=== PATIENT | male | born 1980 | race Caucasian/White ===

== ENCOUNTER 2018-07-13 10:01 | Day surgery (SDC) | payer BC ==
--- NOTE | 2018-07-05 11:07 | HP ---
HISTORY AND PHYSICAL: DATE OF ADMISSION/SURGERY: 07/13/18 He is scheduled for surgery at [facility] on 07/13/18. DATE OF HISTORY AND PHYSICAL EXAM: 07/05/18 ATTENDING PHYSICIAN: Dr. Polanco.* (DICTATED BY PAT SAXENA NP) CHIEF COMPLAINT: Increased swelling and pain bilateral legs. HISTORY OF PRESENT ILLNESS: Shailesh Ramires is a 38-year-old male who underwent closure of the left greater saphenous vein in 2014 with good results. The patient has had lymphedema at that time, but did well after surgery. Over time , he has developed swelling and pain in his bilateral legs. An ultrasound was done, which showed the left greater saphenous vein is patent and compressible. There is reflux of the greater saphenous vein from the saphenofemoral junction to the distal calf. At the saphenofemoral junction, reflux time of 2.5 seconds at a diameter of 1.6 cm. Proximal greater saphenous vein reflux time 3.5 seconds at a diameter of 1.2 cm. In the mid greater saphenous vein and above the knee, the reflux time is 1.3 seconds at a diameter of 0.5 at the knee. The right leg also shows reflux in the greater saphenous vein. This will be addressed at a later date. Dr. Polanco has discussed the nature and course of endoluminal closure in venous reflux disease and has discussed the material risks and relevant alternatives to surgery. These were reviewed with the patient at his preoperative appointment including infection, bleeding, poor healing, recurrent DVT. The patient has been given a chance to ask questions and these have been answered and the patient will sign on admission an informed consent for left leg endoluminal closure of the great saphenous vein and intraoperative sclerotherapy. PAST MEDICAL HISTORY: Significant in the fact that he is morbidly obese, high blood pressure, anxiety, depression and his lymphedema. Dr. Mcintyre is his family doctor. MEDICATIONS: 1. Doxazosin mesylate 4 mg p.o. daily. 2. Furosemide 40 mg. 3. Hydrocodone. 4. Lexapro 10 mg daily. 5. Loxapine succinate 5 mg p.o. daily. 6. Potassium chloride 20 mEq daily. 7. Valsartan/hydrochlorothiazide 320/25 mg p.o. daily. ALLERGIES: None. FAMILY HISTORY: Father heart disease, high blood pressure, diabetes, vein issues. 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 He denied tobacco use and alcohol use. REVIEW OF SYSTEMS: He denied problems with anesthesia. He does not take a daily aspirin. He does take the hydrocodone. There is a recent prescription from his family practitioner for knee pain. PHYSICAL EXAMINATION GENERAL: Shailesh Ramires is a 38-year-old male, obese, in no acute distress. VITAL SIGNS: Height 72 inches, weight 549 pounds. Blood pressure 150/82. BMI of 74.4. Pulse 87. HEENT: Within normal limits. Teeth are in good repair. Pharynx clear. HEART: S1, S2. Regular rate and rhythm. No extra heart sounds were auscultated. ABDOMEN: Soft, nontender. Positive bowel sounds. Positive tympany. No masses palpable. EXTREMITIES: +2 symmetrical radial pulses. NEURO: Alert and oriented x3. The rest of the exam was grossly intact. Local exam shows 1-2+ edema of the bilateral lower extremities with venous stasis changes. IMPRESSION: Venous reflux disease of the left great saphenous vein with re- cannulation of the left greater saphenous vein. PLAN: Same-day surgery admission to Dr. Polanco's service for left leg endoluminal closure of the great saphenous vein and intraoperative sclerotherapy. PAT SAXENA NP [id number]/[facility] #: [id number] [facility]PITALAntonio
--- NOTE | 2018-07-05 11:44 | HP ---
HISTORY AND PHYSICAL: DATE OF ADMISSION/SURGERY: 07/13/18 He is scheduled for surgery at [facility] on 07/13/18. DATE OF HISTORY AND PHYSICAL: 07/05/18 DICTATION ENDS ABRUPTLY. PAT SAXENA NP [id number]/[facility] #: [id number] [facility]ENTERAntonio
[~2018-07-13 10:01] MED LIST: Acetaminophen TAB* 325 MG PO ONE; Buffered Lidocaine 0.9% SYRIN* 5 ML/SYR SYRINGE INTRADERM ONE; EPINEPHRINE 1 MG/ML 1 ML VIAL ONE; Enoxaparin(*) 40 MG/0.4 ML SYR SUBCUT ONE; Lidocaine 2% PF * 5 ML VIAL ONE; Lidocaine 2% PF* 10 ML AMP ONE; Polidocanol 1% 20 MG/2 ML AMP IV ONE; Sodium Bicarbonate 8.4% SYR* 10 ML SYRINGE ONE
[2018-07-13] MEDS ORDERED: Acetaminophen TAB* 325 MG ONE (10:22)
[2018-07-13] MEDS ORDERED: ceFAZolin 1 GM ADVAN(*) 1 GM ADDV.VIAL IVPB ONE (10:22)
[2018-07-13] MEDS ORDERED: ceFAZolin 2 GM PREMIX in ORs 2 GM/50 ML BAG IVPB ONE (10:22)
[2018-07-13] MEDS ORDERED: Levalbuterol 0.63MG/3ML NEB* UNIT OF USE INH PRN (10:53)
[2018-07-13] MEDS ORDERED: PROCHLORPERAZINE INJ 5 MG/ML 2 ML VIAL IV PRN (10:53)
[2018-07-13] MEDS ORDERED: diPHENhydraMINE IV* 50 MG/ML 1 ml VIAL (BENADRYL) IV PRN (10:53)
[2018-07-13] MEDS ORDERED: DiMENhydriNATE IV* 50 MG/ML VIAL IV PUSH PRN (10:53)
[2018-07-13] MEDS ORDERED: HYDROcodone/ACETAMIN 5-325 MG* 1 TAB PO PRN (10:53)
[2018-07-13] MEDS ORDERED: Naloxone* 0.4 MG/ML 1 ML VIAL IV PRN (10:53)
[2018-07-13] MEDS ORDERED: Acetaminophen TAB* 325 MG PO PRN (10:53)
[2018-07-13] MEDS ORDERED: Lidocaine 1% MPF* 2 ML VIAL ONE (11:47)
[2018-07-13] MEDS ORDERED: Midazolam* 1 MG/ML 2 ML VIAL (2 MG) ONE ×2 (12:07→13:18)
[2018-07-13] MEDS ORDERED: Propofol* 10 MG/ML 20 ML BTL IV PUSH ONE ×2 (12:32→14:21)
[2018-07-13] MEDS ORDERED: Lidocaine 2% PF * 5 ML VIAL ONE (12:32)
[2018-07-13] MEDS ORDERED: Famotidine IV* 10 MG/ML 2 ML (20 mg) ONE (12:32)
[2018-07-13] MEDS ORDERED: fentaNYL* 50 MCG/ML 2 ML VIAL (100 MCG VIAL) ONE ×2 (12:38→13:39)
[2018-07-13] MEDS ORDERED: KETAMINE HCL* 50 MG/ML 10 ML VIAL ONE (14:02)
[2018-07-13 14:52] VITALS: BP 116/63
[2018-07-13] MEDS ORDERED: Ibuprofen TAB* 600 MG ONE (15:09)
--- NOTE | 2018-07-14 07:08 | OP ---
DATE OF OPERATION: 07/13/18 - LOCATED WITHIN [facility] DATE OF : 80 SURGEON: Kev Polanco MD MULTIMEDIA DESIGNER: Sirisha Daniel NP ANESTHESIA: Local plus MAC. PRE-OP DIAGNOSIS: Left lower extremity venous insufficiency secondary to an incompetent left greater saphenous vein. POST-OP DIAGNOSES: 1. Left lower extremity venous insufficiency secondary to an incompetent left greater saphenous vein. 2. Incompetent anterior accessory branch and medial accessory branch of the left greater saphenous vein. OPERATIVE PROCEDURE: 1. Endovenous laser ablation of the left greater saphenous vein. 2. EVLT anterior accessory branch, greater saphenous vein. 3. Anterior endovenous laser ablation of the medial accessory branch. 4. Intraoperative injection sclerotherapy. ESTIMATED BLOOD LOSS: Approximately 30 cc. DESCRIPTION OF PROCEDURE: The patient was taken to the procedure room. He underwent ultrasound mapping of the left greater saphenous vein. He also had an anterolateral accessory branch that was as well refluxing and a medial accessory branch that was refluxing. The greater saphenous vein was interrupted at about the knee level secondary to kinks in the vein in a corkscrew shape. After the mapping was done, the patient was placed in supine position. He had received preoperative antibiotics and subcutaneous Heparin. He was then prepped and draped in the usual sterile fashion and under sedation, lidocaine 1% was to used to infiltrate on the medial aspect of the left leg above the knee. Percutaneous cannulation of the greater saphenous vein was done under ultrasound guidance. The needle was then exchanged for a 4-Danish catheter. Subsequently, 0.035 guidewire was advanced via the 4-Danish catheter and this was advanced up to the groin. At the level of the groin, there was a saphenofemoral junction connecting to neovascularization. The catheter was placed in the upper third of the thigh and left in place to be used later. Access of the anterior accessory branch was done with a micropuncture kit, once the small needle and wire were in place, the needle was exchanged for 4-Danish catheter. The same thing was done with the medial accessory branch and the catheters were left in place to be used later. We then proceeded to introduce and exchanged the 4-Danish catheter of the greater saphenous vein with a 5- Danish introducer sheath, that was advanced over the wire up to the upper third of the greater saphenous vein but far away from the saphenofemoral junction. After this was done, we then proceeded to introduce a laser fiber inside the 5- Danish catheter and we then proceeded to infiltrate tumescent local anesthesia around the vein and the catheter. This was done with difficulty. The patient has significant amount of edema and the vein was quite deep because of the patient's morbid obesity and body habitus. After the anesthesia was then given , we then proceeded to activate a diode laser making sure the tip was away from the saphenofemoral junction, which was approximately 5 to 6 cm from the saphenofemoral junction. The laser was then activated and a total of 700 joules were delivered to the greater saphenous vein. The lower segment of the greater saphenous vein that was interrupted was also accessed with a 4-Danish catheter. On this one, the connecting through tortuous veins between the lower segment of the greater saphenous vein and the main greater saphenous vein were closed using Asclera 1% solution in CO2 foam, a total of 1 cc was used, in order to target this connecting segment. The remaining lower segment of the greater saphenous vein was then lasered by introducing a 600 micron laser fiber into the 4-Danish catheter and injecting tumescent local anesthesia for the lower segment, between the knee and approximately 8 cm below the saphenofemoral junction. A total of 400 joules were delivered to this segment and after this was completed, the 600 micron laser fiber was then introduced in the anterior accessory branch, positioning the tip of the laser fiber at 3 cm from the saphenofemoral junction, and after infiltrating tumescent local anesthesia activating the diode laser, a total of 532 joules were delivered to the anterior accessory branch. The same thing was done to the medial accessory branch by introducing a laser fiber into the segment and positioning the tip of the catheter 3 cm below the saphenofemoral junction and after the tumescent anesthesia was given under ultrasound, we proceeded to activate the diode laser delivering a total of 1372 joules to the medial accessory branch. After this was completed, there was evidence of closure of the treated veins; however, the common femoral vein appeared to be compressible as well as the superficial femoral vein appeared to be compressible without any abnormalities. After this was done, the small incisions were closed with 5-0 Prolene and Steri-Strips. A pressure dressing was applied to the left lower extremity. The patient was then taken in good condition to recovery room. [id number]/[facility] #: [id number] GLORIA
== END 2018-07-13 15:56 | disposition home or self-care (01) ==
LOC: OR 10:01
PROVIDERS: ATTEND Surgery
DX: I83.12 Varicose veins of left lower extremity with inflammation (principal); I87.2 Venous insufficiency (chronic) (peripheral); I83.812 Varicose veins of left lower extremity with pain; I89.0 Lymphedema, not elsewhere classified; I95.0 Idiopathic hypotension; E66.01 Morbid (severe) obesity due to excess calories; Z68.45 Body mass index [BMI] 70 or greater, adult; F41.8 Other specified anxiety disorders; E78.5 Hyperlipidemia, unspecified; G47.33 Obstructive sleep apnea (adult) (pediatric); I10 Essential (primary) hypertension; G89.29 Other chronic pain; Z79.891 Long term (current) use of opiate analgesic
CPT/HCPCS: A9270-GY; J0690; J1650; J2001; J2250; J2704; J3010

== ENCOUNTER 2019-05-14 16:42 | Inpatient (IN) | payer BC ==
--- OUTSIDE RECORDS SUMMARY | 2019-05-14 17:14 | XMS REPORT | Continuity of Care Document ---
:1980 External Reference #:[id number] Author Name MARINO Lucas (transmitted by agent of provider Xi Grant) Address [address] [place] [address] [place] [address] Care Team Providers Name Role Phone Dinesh Mcintyre M.D. 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 Kev Polanco Onset: 06/25/2015 Body mass index 40+ - severely obese Kev Polanco Onset: 11/27/2018 Vascular disease of the skin RENATE Alonso Onset: 07/05/2018 Varicose veins of lower extremity with RENATE Alonso Onset: 07/05/2018 inflammation Encounter for other preprocedural examination RENATE Alonso Onset: 2017 Edema Kev Polanco Onset: 06/11/2018 Lymphedema Kev Polanco Onset: 06/11/2018 Social History Type Date Description Comments Sex Unknown ETOH Use Denies alcohol use ETOH Use Occasionally consumed alcohol in the past ETOH Use Stopped all use in April of 2015 Tobacco Use Start: Unknown Patient has never smoked Smoking Status Reviewed: 11/27/18 Patient has never smoked Allergies, Adverse Reactions, Alerts Active Allergies Reaction Severity Comments Date NKDA 06/25/2015 Hay Fever 06/25/2015 Medications Active Medications SIG Qnty Indications Ordering Provider Date Circaid Juxta Lite wear daily as I89.0 Kev Polanco 05/09/2019 Right Leg. Custom directed Juxtafit Left Leg R60.1 Valsartan-Hydrochlorothiazide po qd Unknown 320-25mg Tablets Lexapro 10mg every day Unknown Tablets Loxapine Succinate po qd Unknown 5mg Capsules Doxazosin Mesylate po qd Unknown 4mg Tablets Furosemide 40mg po tid Francisco Javier, mad Tablets M.D. Potassium Chloride Kristine ER 2 tabs in the Francisco Javier, Ahmad 20Meq Tablets ER am and 1 at M.D. night Hydrocodone Bitartrate/Acetaminophen 1-2 tabs by Unknown 5-300mg Tablets mouth every 6 hours as needed pain Tylenol 325mg 2 tabs po tid Unknown Capsules Diclofenac Sodium Cassi Pat 1% Gel M.D. Zyrtec Allergy 10mg 1 by mouth Unknown Tablets every day Immunizations CPT Code Status Date Vaccine Lot # [id number] Refused 06/19/2018 Influenza Vaccine [id number] Refused 08/06/2015 Influenza Vaccine 45075-760-65 [id number] Refused 06/25/2015 Influenza Vaccine [id number] Vital Signs Date Vital Result Comment 05/09/2019 2:17pm Height 72 inches 6'0" BP Systolic 139 mmHg BP Diastolic 74 mmHg Heart Rate 92 /min Respiratory Rate 19 /min 04/18/2019 2:11pm Height 72 inches 6'0" BP Systolic 159 mmHg BP Diastolic 88 mmHg Heart Rate 86 /min Respiratory Rate 18 /min Pain Level 5 out of 10 Results Test Date Facility Test Result H/L Range Note Xray 04/26/2019 [facility] Ultrasound Extremity < pending> [address]/[place] [address] [phone] Procedures Description No Information Available Medical Devices Description No Information Available Encounters Type Date Location Provider Dx Diagnosis Office Visit 04/30/2019 1:00p [facility] RENATE Alosno R60.0 Localized edema I89.0 Lymphedema, not elsewhere classified R60.1 Generalized edema E66.2 Morbid (severe) obesity with alveolar hypoventilation Office Visit 04/18/2019 2:00p [facility] Kev Polanco R60.0 Localized edema I89.0 Lymphedema, not elsewhere classified R60.1 Generalized edema E66.2 Morbid (severe) obesity with alveolar hypoventilation Office Visit 11/27/2018 11:30a [facility] Polanco, Kev R60.0 Localized edema I89.0 Lymphedema, not elsewhere classified I83.11 Varicose veins of right lower extremity with inflammation Z68.45 Body mass index (BMI) 70 or greater, adult Assessments Date Code Description Provider 04/30/2019 R60.0 Localized edema Sirisha Fredy, HOUSING OFFICER 04/30/2019 I89.0 Lymphedema, not elsewhere classified Sirisha Fredy, HOUSING OFFICER 04/30/2019 R60.1 Generalized edema Sirisha Fredy, HOUSING OFFICER 04/30/2019 E66.2 Morbid (severe) obesity with alveolar Sirisha Fredy, HOUSING OFFICER hypoventilation 04/18/2019 R60.0 Localized edema Polanco, Kev 04/18/2019 I89.0 Lymphedema, not elsewhere classified Polanco, Kev 04/18/2019 R60.1 Generalized edema Polanco, Kev 04/18/2019 E66.2 Morbid (severe) obesity with alveolar Polanco, Kev hypoventilation 11/27/2018 R60.0 Localized edema Polanco, Kev 11/27/2018 I89.0 Lymphedema, not elsewhere classified Polanco, Kev 11/27/2018 I83.11 Varicose veins of right lower extremity with Polanco, Kev inflammation 11/27/2018 Z68.45 Body mass index (BMI) 70 or greater, adult Polanco, Kev Plan of Treatment No Information Available Functional Status Description No Information Available Mental Status Description No Information Available Referrals Refer to Dr Reason for Referral Status Appt Shailesh Kamara M.D. Sent 04/29/[address] [address] [phone]
--- OUTSIDE RECORDS SUMMARY | 2019-05-14 17:14 | XMS REPORT | Continuity of Care Document ---
:1980 External Reference #:[id number] Author Name Mina Phoenix M.D., [facility], [facility] (transmitted by agent of provider Shellie Christian) Address [address] 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 Active Problems Provider Date Dyspnea Mina Phoenix M.D., [facility], [facility] Onset: 05/03/2019 Social History Type Date Description Comments Sex Unknown ETOH Use Rarely consumes alcohol Tobacco Use Start: Unknown Patient has never smoked Recreational Drug Use Denies Drug Use Smoking Status Reviewed: 05/03/19 Patient has never smoked Exercise Type/Frequency Does not exercise Allergies, Adverse Reactions, Alerts Description No Known Drug Allergies Medications Active Medications SIG Qnty Indications Ordering Provider Date Furosemide 1 and 1/2 tabs by Unknown 40mg Tablets twice daily Potassium Chloride ER 2 tabs by mouth Unknown in the morning 20Meq Tablets ER and 1 tab by mouth in the evening Alprazolam 1 tab by mouth Unknown 0.5mg Tablets three times a day as needed Doxazosin Mesylate 1 and 1/2 tab by Unknown 4mg mouth every day Tablets Escitalopram Oxalate 1 by mouth every Unknown 10mg day Tablets Loxapine Succinate 1 cap by mouth at Unknown 5mg bedtime Capsules Valsartan-Hydrochlorot 1 tab by mouth Unknown hiazide every day 320-25mg Tablets Ibuprofen 3 tabs by mouth Unknown 200mg Tablets twice daily CBD Oil 0.5 ml SL twice Unknown daily Zyrtec Allergy 1 by mouth every Unknown 10mg day Tablets Immunizations Description No Information Available Vital Signs Date Vital Result Comment 05/03/2019 9:52am Height 71.25 inches 5'11.25" Weight 610.00 lb Heart Rate 88 /min iregular BP Systolic 130 mmHg Ra Large Cuff BP Diastolic 54 mmHg Ra Large Cuff BP Systolic Sitting 148 mmHg LA Large Cuff BP Diastolic Sitting 84 mmHg LA Large Cuff BP Systolic Standing 150 mmHg LA Large Cuff BP Diastolic Standing 92 mmHg LA Large Cuff Respiratory Rate 20 /min Pain Level 7 O2 % BldC Oximetry 80 % BMI (Body Mass Index) 84.5 kg/m2 Results Description No Information Available Procedures Date Code Description Status 05/03/2019 68321 EKG Tracing & Interpretation Completed Medical Devices Description No Information Available Encounters Description No Information Available Assessments Date Code Description Provider 05/03/2019 R06.02 Shortness of breath Mina Phoenix M.D., HERLINDA AVILA Plan of Treatment Future Appointment(s):06/14/2019 11:00 am - Mina Phoenix M.D., HERLINDA AVILA at [facility]06/04/2019 11:00 am - Mina Phoenix M.D., HERLINDA AVILA at [facility]05/21/2019 9:00 am - Mina Phoenix M.D., HERLINDA AVILA at [facility]05/03/2019 - Mina Phoenix M.D., MARGARITA, CGFESW64.02 Shortness of breathNew Orders:Echocardiogram, Scheduled: 06/04/19Stress Test, Pharmacologic Stress Echocardiogram Dobutamine, Scheduled: 05/21/19Comments:As discussed, we will further evaluate your heart. Please have your sleep apnea reevaluated, avoid salt and avoid Ibuprofen (can use Tylenol as needed for pain). Go to ER if start to feel short of breath at rest.Follow up:after that testing Functional Status Description No Information Available Mental Status Description No Information Available Referrals Description No Information Available
--- OUTSIDE RECORDS SUMMARY | 2019-05-14 17:14 | XMS REPORT | Continuity of Care Document ---
:1980 External Reference #:[id number] Author Name Mina Phoenix M.D., [facility], [facility] (transmitted by agent of provider Airam Aparicio) Address 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 Provider Date Dyspnea Mina Phoenix M.D., [facility], [facility] Onset: 05/03/2019 Social History Type Date [...] Available Procedures Date Code Description Status 05/03/2019 55671 EKG Tracing & Interpretation Completed Medical Devices Description No Information Available Encounters Type Date Location Provider Dx Diagnosis Office Visit 05/03/2019 [facility] Mina Burrows R06.02 Shortness of 10:00a Of Poultry [employer] AT Vickey Phoenix M.D., breath [facility], [facility] Assessments Date Code Description Provider 05/03/2019 R06.02 Shortness of breath Mina Phoenix M.D., [facility], [facility] Plan of Treatment 05/03/2019 - Mina Phoenix M.D., [facility], HUVRFE53.02 Shortness of breathNew Orders:Echocardiogram, Ordered: 05/03/19Stress Test, Pharmacologic Stress Echocardiogram Dobutamine, Ordered: 05/03/19Comments:As discussed, we will further evaluate your heart. Please have your sleep apnea reevaluated, avoid salt and avoid Ibuprofen (can use Tylenol as needed for pain).Follow up:after that testing Functional Status Description No Information Available Mental Status Description No Information Available Referrals Description No Information Available
--- OUTSIDE RECORDS SUMMARY | 2019-05-14 17:14 | XMS REPORT | Continuity of Care Document ---
:1980 External Reference #:[id number] Author Name RENATE Alonso Address [address] [place] [address] Care Team Providers Name Role Phone Dinesh Mcintyre M.D. 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 Potassium Chloride Kristine ER 2 [...] CPT Code Status Date Vaccine Lot # [id number] Refused 06/19/2018 Influenza Vaccine [id number] [id number] Refused 08/06/2015 Influenza Vaccine [id number] Refused 06/25/2015 Influenza Vaccine [id number] Vital Signs Date Vital Result Comment 05/09/2019 [...] Test Result H/L Range Note Xray 04/26/2019 [facility] Ultrasound Extremity < pending> [address]Doppler [place], [place] [id number] [phone] Procedures Description No Information Available Medical Devices Description No Information Available Encounters Type Date Location Provider Dx Diagnosis Office Visit 05/09/2019 [facility] MARINO Lucas R60.1 Generalized edema 2:00p R60.0 Localized edema Office Visit 04/30/2019 1:00p [facility] RENATE Alonso R60.0 Localized edema I89.0 Lymphedema, not elsewhere [...] greater, adult Assessments Date Code Description Provider 05/09/2019 R60.1 Generalized edema Clarice Haley, PA 05/09/2019 R60.0 Localized edema Clarice Haley, PA 04/30/2019 R60.0 Localized edema Sirisha Fredy, HONEY LIQUEFIER 04/30/2019 I89.0 Lymphedema, not elsewhere classified Siirsha Fredy, HONEY LIQUEFIER 04/30/2019 R60.1 Generalized edema Sirisha Fredy, HONEY LIQUEFIER 04/30/2019 E66.2 Morbid (severe) obesity with alveolar Sirisha Fredy, HONEY LIQUEFIER hypoventilation 04/18/2019 R60.0 Localized edema Polanco, Kev [...] Description No Information Available Referrals Refer to Reason for Referral Status Appt Date Shailesh Kamara M.D. Sent 04/29/[address] [address] [phone]
--- NOTE | 2019-05-14 17:41 | ED ---
Complex/Multi-Sys Presentation - HPI Summary HPI Summary: This patient is a 39 year old M [facility] mother with a chief complaint of fluid buildup since a 05/10/19. Pt has been having trouble walking (SOB, pain), sores on back of legs, trouble urinating, walking up and down stairs. In the past week pt has gain weight since last week. Pt has PMHx of HTN. Pt takes losartan 60 mg twice a day. Pt had vein stripping done on left leg for lymphedema Jul, 2018. Patient denies fever, chills, vomiting, and diarrhea. Pt has sleep apnea. 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 Per triage, Patient comes in today after several days of increased fluid building up in his body. Patient takes medications for fluid overload. Patient found to be 73% on RA, comfortable, pink warm dry skin, patient in no distress. Patent placed on 4L. Medications reviewed. Allergies noted - History Of Current Complaint Chief Complaint: EDGeneral Time Seen by Provider: 05/14/19 17:13 Hx Obtained From: Patient Onset/Duration: Lasting Days, Still Present Timing: Constant, Days Severity Currently: None Aggravating Factor(s): Nothing Alleviating Factor(s): Nothing Associated Signs And Symptoms: Positive: SOB, Other - fluid build up;trouble walking, sores on back of legs, trouble urinating, trouble walking up and down stairs. Negative: Nausea, Vomiting, Diarrhea, Fever - Allergies/Home Medications Allergies/Adverse Reactions: Allergies Allergy/AdvReac Type Severity Reaction Status Date / Time No Known Allergies Allergy Verified 05/07/19 07:31 Home Medications: Home Medications ALPRAZolam TAB* [Xanax TAB*] 0.5 mg PO TID PRN 05/14/19 [History Confirmed 05/14] Acetaminophen [Acetaminophen Extra Strength] 1,000 mg PO BID 05/14/19 [History Confirmed 05/14/19] Diclofenac 1% GEL (NF) [Voltaren 1% GEL (NF)] 1 applic TOPICAL TID MDD 3 [History Confirmed 05/14/19] Doxazosin TAB* [Cardura TAB*] 6 mg PO BEDTIME 05/14/19 [History Confirmed ] Escitalopram * [Lexapro 10 mg (NF)] 10 mg PO DAILY 05/14/19 [History Confirmed 05/14/19] Furosemide TAB* [Lasix TAB*] 60 mg PO BID 05/14/19 [History Confirmed 05/14/19] Loxapine (NF) 5 mg PO BEDTIME 05/14/19 [History Confirmed 05/14/19] OLANzapine TAB* [Zyprexa 10 MG TAB*] 10 mg PO DAILY 05/14/19 [History Confirmed 05/14/19] Potassium Chlor TAB* [Klor Con ER TAB*] 20 meq PO BEDTIME 05/14/19 [History Confirmed 05/14/19] Potassium Chlor TAB* [Klor Con ER TAB*] 40 meq PO QAM 05/14/19 [History Confirmed 05/14/19] Valsartan/HCTZ 320/25(NF) [Diovan Hct 320/25(NF)] 1 tab PO DAILY 05/14/19 [ History Confirmed 05/14/19] PMH/Surg Hx/FS Hx/Imm Hx Endocrine/Hematology History: Denies: Hx Diabetes, Hx Sickle Cell Disease, Hx Thyroid Disease Cardiovascular History: Reports: Hx Hypertension, Hx Peripheral Vascular Disease - Venous Reflux bilateral legs-varicose veins-lymphedema Denies: Hx Congestive Heart Failure, Hx Deep Vein Thrombosis, Hx Myocardial Infarction, Hx Pacemaker/ICD, Other Cardiovascular Problems/Disorders Respiratory History: Reports: Hx Asthma - History of asthma when he was in middle school., Hx Sleep Apnea Denies: Hx Chronic Obstructive Pulmonary Disease (COPD), Hx Lung Cancer, Hx Pneumonia, Hx Pulmonary Embolism, Other Respiratory Problems/Disorders GI History: Denies: Hx Gall Bladder Disease, Hx Gastrointestinal Bleed, Hx Ulcer, Hx Urosepsis, Other GI Disorders History: Denies: Hx Kidney Stones, Hx Renal Disease, Other Problems/Disorders Musculoskeletal History: Reports: Other Musculoskeletal History - Knee and foot pain, thinks it is from swelling Sensory History: Denies: Hx Contacts or Glasses, Hx Hearing Aid Opthamlomology History: Denies: Hx Contacts or Glasses Neurological History: Denies: Hx Dementia, Hx Migraine, Hx Seizures, Hx Transient Ischemic Attacks (TIA), Other Neuro Impairments/Disorders Psychiatric History: Reports: Hx Anxiety Denies: Hx Depression, Hx Schizophrenia, Hx Bipolar Disorder - Surgical History Surgery Procedure, Year, and Place: Varicose vein removed on leg inner thigh august 2015 Hx Anesthesia Reactions: No Infectious Disease History: No Infectious Disease History: Reports: History Other Infectious Disease - Anal abscess 2.5 years ago. Denies: Hx Clostridium Difficile, Hx Hepatitis, Hx Human Immunodeficiency Virus (HIV), Hx of Known/Suspected MRSA, Hx Shingles, Hx Tuberculosis, Hx Known/ Suspected VRE, Hx Known/Suspected VRSA, Traveled Outside the [place] in Last 30 Days - Family History Known Family History: Positive: Hypertension, Diabetes - Social History Alcohol Use: None Substance Use Type: Reports: None Hx Tobacco Use: No Smoking Status (MU): Never Smoked Tobacco Review of Systems Positive: Other - trouble walking. Negative: Fever, Chills Positive: Shortness Of Breath Negative: Vomiting, Diarrhea Positive: other - trouble urinating Positive: Other - sores on back of legs All Other Systems Reviewed And Are Negative: Yes Physical Exam - Summary Physical Exam Summary: Constitutional: Morbidly obese, Alert. (-) Distressed Skin: Warm, Dry HENT: Normocephalic; Atraumatic Eyes: Conjunctiva normal Neck: Musculoskeletal ROM normal neck. (-) JVD, (-) Stridor, (-) Tracheal deviation Cardio: Rhythm regular, rate normal, Heart sounds normal; Intact distal pulses; The pedal pulses are 2+ and symmetric. Radial pulses are 2+ and symmetric. (-) Murmur Pulmonary/Chest wall: limited lung exam due to body habitus Abd: Soft, (-) tenderness, (-) Distension, (-) Guarding, (-) Rebound Musculoskeletal: Edematous large legs, large protruding abdomen, difficult to feel the fluid weight Lymph: (-) Cervical adenopathy Neuro: Alert, Oriented x3 Psych: Mood and affect Normal Triage Information Reviewed: Yes Vital Signs On Initial Exam: Initial Vitals Temp Pulse Resp BP Pulse Ox 98.7 F 95 16 153/123 73 05/14/19 16:56 05/14/19 16:56 05/14/19 16:56 05/14/19 16:56 05/14/19 16:56 Vital Signs Reviewed: Yes Diagnostics - Vital Signs Vital Signs Temp Pulse Resp BP Pulse Ox 05/14/19 16:56 98.7 F 95 16 153/123 73 - Laboratory Result Diagrams: 05/14/19 18:07 05/14/19 18:07 Lab Statement: Any lab studies that have been ordered have been reviewed, and results considered in the medical decision making process. - Radiology CXR Radiology Interpretation Completed By: ED Physician Summary of Radiographic Findings: CXR reveals, per ED physician, Cardiomegaly with bilateral pulmonary edema. Pending official radiology report. - EKG 1805 Cardiac Rate: NL - 91 bpm EKG Rhythm: Sinus Rhythm Summary of EKG Findings: An EKG at 1805 reveals normal sinus rhythm 91 bpm, T- wave inversion in III, no STEMI Re-Evaluation - Re-Evaluation First Eval Re-Evaluation Time: 18:47 Comment: Discussed results and plan of care with pt. Complex Multi-Symp Course/Dx Course Of Treatment: Patient is here with worsening anasarca over the past month. Patient's had a negative workup so far as an outpatient including a 24- hour urine sample. Patient was 73% on room air but improved to 95% on 4 L. Patient is morbidly obese with a limited exam secondary to this. Patient has a chest x-ray which shows possible cardiomegaly with pulmonary edema. Patient normal BNP which is not reliable given his body habitus. Patient has a bumped troponin with no EKG changes and some T-wave inversion in lead 3. Patient did not tolerate typical CPAP since started on nasal CPAP after failing nasal BiPAP. Patient is hypercapnic with a CO2 of 97 but has totally normal mentation. Patient's likely hypercapnic due to obesity hypoventilation syndrome. - Diagnoses Provider Diagnoses: Hypercapnemia, Hypoxemia, Elevated troponin, Hyperkalemia, Fluid overload, Morbid obesity - Physician Notifications Discussed Care Of Patient With: Jaclyn Diggs Time Discussed With Above Provider: 19:07 Instructed by Provider To: Other - Discussed case with Dr. Diggs, who accepts pt for admission - Critical Care Time Critical Care Time: 30-74 min - 30 mins Discharge ED - Sign-Out/Discharge Documenting (check all that apply): Patient Departure - Admit Patient Received Moderate/Deep Sedation with Procedure: No - Discharge Plan Condition: Stable Disposition: ADMITTED TO [facility] Referrals: Dinesh Mcintyre MD [Primary Care Provider] - - Billing Disposition and Condition Condition: STABLE Disposition: Admitted to [facility] - Attestation Statements Document Initiated by Scribe: Yes Documenting Scribe: Dorothy Arisa Provider For Whom Scribe is Documenting (Include Credential): Cristino Webber MD Scribe Attestation: Dorothy Whiting, scribed for Cristino Webber MD on 05/14/19 at 1924. Scribe Documentation Reviewed: Yes Provider Attestation: The documentation as recorded by the Dorothy le accurately reflects the service I personally performed and the decisions made by me, Cristino Webber MD Status of Scribe Document: Viewed
[2019-05-14 18:18] LABS: ABS Basophils 0.1 10^3/ul (0-0.2); ABS Eosinophils 0.2 10^3/ul (0-0.6); ABS Lymphocytes 1.1 10^3/ul (1.0-4.8); ABS Monocytes 1.1 10^3/ul (0-0.8); Eosinophil % 2.1 %; Hematocrit 47 % (42-52); Lymphocyte % 9.6 %; Mean Corpuscular HGB Conc 32 g/dL (31-36); Mean Corpuscular Hemoglobin 27 pg (27-31); Mean Corpuscular Volume 85 fL (80-94); Mean Platelet Volume 7.8 fL (7.4-10.4); Nucleated Red Blood Cells % 0.2; Platelet Count 191 10^3/uL (150-450); Red Blood Count 5.59 10^6 /uL (4.18-5.48); Red Cell Distribution Width 19 % (10-15); White Blood Count 11.5 10^3/uL (3.5-10.8)
[2019-05-14 18:44] LABS: Urine Appearance Clear; Urine Bilirubin Negative (Negative); Urine Blood Negative (Negative); Urine Color Yellow; Urine Glucose Negative (Negative); Urine Ketones Negative (Negative); Urine Nitrite Negative (Negative); Urine Protein Negative (Negative); Urine Specific Gravity 1.005 (1.010-1.030); Urine Urobilinogen Negative (Negative)
[2019-05-14 18:47] LABS: Albumin 3.7 g/dL (3.2-5.2); CO2 Carbon Dioxide 35 mmol/L (22-32); Calcium 8.9 mg/dL (8.6-10.3); Chloride 91 mmol/L (101-111); Sodium 131 mmol/L (135-145)
[2019-05-14 18:48] LABS: Anion Gap 5 mmol/L (2-11); Potassium 5.1 mmol/L (3.5-5.0)
[2019-05-14 18:53] LABS: ALT 15 U/L (7-52); AST 16 U/L (13-39); Albumin/Globulin Ratio 1.1 (1-3); Alkaline Phosphatase 57 U/L (34-104); BUN/Creatinine Ratio 19.8 (8-20); Blood Urea Nitrogen 16 mg/dL (6-24); EGFR African American 128.4 (>60); EGFR Non-African American 106.1 (>60); Globulin 3.4 g/dL (2-4); Glucose 102 mg/dL (70-100); Total Protein 7.1 g/dL (6.4-8.9); Troponin I 0.09 ng/mL (<0.04)
[2019-05-14] MEDS ORDERED: Furosemide IV* 10 MG/ML VIAL (40 MG) IV ONE ×2 (19:18→22:26)
[2019-05-14] MEDS ORDERED: Acetaminophen TAB* 325 MG PO ONE (19:56)
[2019-05-14] MEDS ORDERED: Albuterol 2.5 MG/3 ML NEB.SOL* (0.083%) INH PRN (19:57)
[2019-05-14] MEDS ORDERED: Acetaminophen TAB* 325 MG PO PRN (19:57)
[2019-05-14] MEDS ORDERED: Magnesium Hydroxide LIQ* 30 ML UDC PO PRN (19:57)
[2019-05-14] MEDS ORDERED: Al Hydrox/Mg Hydrox/Simet LIQ* 30 ML UDC PO PRN (19:57)
[2019-05-14 20:07] LABS: Magnesium 2.1 mg/dL (1.9-2.7)
[2019-05-14 20:13] LABS: Cholesterol 112 mg/dL; HDL Cholesterol 30.3 mg/dL; LDL Cholesterol 69 mg/dL; Triglycerides 65 mg/dL
[2019-05-14 21:07] LABS: Troponin I 0.11 ng/mL (<0.04)
[2019-05-14 21:23] LABS: BUN/Creatinine Ratio 19.7 (8-20); Blood Urea Nitrogen 15 mg/dL (6-24); CO2 Carbon Dioxide 40 mmol/L (22-32); Calcium 8.9 mg/dL (8.6-10.3); Chloride 89 mmol/L (101-111); EGFR African American 138.2 (>60); EGFR Non-African American 114.2 (>60); Glucose 117 mg/dL (70-100); Sodium 131 mmol/L (135-145)
[2019-05-14 21:25] LABS: Anion Gap 2 mmol/L (2-11); Potassium 5.4 mmol/L (3.5-5.0)
--- NOTE | 2019-05-14 22:02 | HP ---
CC: Dr. Dinesh Mcintyre * HISTORY AND PHYSICAL: DATE OF ADMISSION: 05/14/19 PRIMARY CARE PHYSICIAN: Dr. Dinesh Mcintyre. HEALTHCARE PROXY: His , Radhika, phone number [phone]. CODE STATUS: Full. CHIEF COMPLAINT: Subacute progressive hypoxia and edema. HISTORY OF PRESENT ILLNESS: Mr. Ramires is a 39-year-old man with a history of morbid obesity, lymphedema, anxiety, depression, hypertension, sleep apnea, and peripheral vascular disease, who is presenting with several weeks of progressive edema and hypoxia. He reports that he has significant edema at baseline for which he has been undergoing an outpatient workup. He reports that a 24-hour urine collection was normal; this was possibly for protein. He reports that he has bariatric surgery scheduled for August and was recently referred to Dr. Shailesh Kamara of Endocrinology and Dr. Phoenix of Cardiology for preoperative clearance and has an echo and stress test pending as an outpatient. He noticed over the last few weeks that his edema had been getting worse, notably it is over his legs and abdomen. He is not able to give me baseline weight, but says that his weight has been increasing. When mentioned to him that he is 605 pounds today, he states that that is higher than his baseline. However, of note, he saw Cardiology just under 2 weeks ago, and at that time, his weight was noted to be 610 pounds. The patient also reports that he measures his oxygen saturation at home and that he is supposed to be on a CPAP machine, but is unable to tolerate it and he noticed that he had been progressively more hypoxic over the last few days; however, he is unable to give a number. The patient also reports dyspnea on exertion, but denies chest pain, shortness of breath at rest, orthopnea, paroxysmal nocturnal dyspnea, nausea, vomiting, constipation, diarrhea, abdominal pain, changes in urination, dysuria, fevers, chills, or night sweats. Of note, this history is limited as the patient was very uncomfortable in normal-sized stretcher and preferred limited interview. In the emergency room, the patient was noted to have a respiratory acidosis and also a pCO2 of 93, so he was started on nasal BiPAP which he only tolerated briefly. He also had a chest x-ray that showed cardiomegaly and pleural effusions. He was asked to be admitted to Medicine for further management. PAST MEDICAL HISTORY: 1. Morbid obesity. 2. Hypertension. 3. Anxiety and depression. 4. Lymphedema, status post vein sclerotherapy in 2018. 5. Sleep apnea. 6. Allergic rhinitis. HOME MEDICATIONS: 1. Alprazolam 0.5 mg 3 times a day as needed for anxiety. 2. Escitalopram 10 mg daily. 3. Loxapine 5 mg nightly. 4. Valsartan/hydrochlorothiazide 320/25 one tab daily. 5. Potassium chloride 40 mEq in the morning, 20 mEq in the evening. 6. Doxazosin 6 mg at bedtime. 7. Furosemide 60 mg twice a day. 8. Diclofenac gel 1% topically as needed. ALLERGIES: No known drug allergies. FAMILY HISTORY: Father had heart disease, high blood pressure, vein issues, diabetes. Paternal grandfather had stroke, diabetes, hypertension. Mother had hypertension and anxiety. SOCIAL HISTORY: The patient lives with his and child. 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 He denies current history of tobacco use, alcohol or other drugs. PHYSICAL EXAMINATION GENERAL: He is a morbidly obese man, mildly anxious appearing, but alert and interactive. No increased work of breathing. VITAL SIGNS: Afebrile, heart rate 90, blood pressure 130/73, respiratory rate 25, oxygen saturation 90% on 4 L. NECK: Unable to appreciate JVP given habitus. HEENT: Moist mucous membranes. OP clear. LUNGS: Clear to auscultation anteriorly. HEART: Normal S1, S2. Regular rate and rhythm. No murmurs, gallops, or rubs. ABDOMEN: Protuberant, soft, nontender. Trace pitting edema. EXTREMITIES: Warm and well perfused. Diffuse erythema over distal lower extremities. The patient reports at baseline 2 to 3+ lymphedema to 5. NEURO: Pupils equal, round, and reactive to light. A and O x3. Moves all extremities spontaneously. DIAGNOSTIC STUDIES/LAB DATA: CBC notable for leukocytosis to 11.5. BMP with sodium 131, potassium 5.1, carbon dioxide 35, and normal BUN and creatinine. Troponin 0.09. BNP 67. TSH 9.2. Urinalysis unremarkable. EKG with normal sinus rhythm at 91, low voltage T-wave inversions in III and T- wave flattening in V2. No priors for comparison. Chest x-ray, AP with significant cardiomegaly and possible effusions bilaterally , but poor film quality. ASSESSMENT AND PLAN: Mr. Ramires is a 39-year-old man with morbid obesity, lymphedema, hypertension, depression, anxiety, who is presenting with subacute progressive edema and hypoxia. He was found with hypercarbic and hypoxemic respiratory failure. He will be admitted to the ICU for BiPAP and IV diuresis. 1. Respiratory failure. The patient is likely chronic retainer of CO2 given his elevated bicarb. He will be placed on BiPAP in the ICU given hypoxia on presentation with likely volume overload on chest x-ray and exam. He will be aggressively diuresed with IV furosemide with close electrolyte monitoring. He will have daily weights and I's and O's recorded. The patient may have component of heart failure, so a transthoracic echocardiogram has been ordered. 2. Edema. Again, this is possibly from heart failure. It appears the patient had other workup for edema including 24-hour urine collection possibly for protein as an outpatient. He does not have protein on his UA here. We will aggressively diurese with furosemide as above. The patient is also on hydrochlorothiazide. 3. Elevated troponin. This is likely in the setting of demand given possible heart failure exacerbation. The patient adamantly denies chest pain. We will try to obtain recent EKGs done in cardiology clinic, for baseline, and we will trend troponins. 4. Hypertension. The patient's home medications included valsartan/ hydrochlorothiazide 320/25 with doxazosin and potassium. It appears the patient 's potassium in clinic this year was 5.0, so it is highly likely that he does not need to take such a significant amount of potassium as an outpatient. If his hyponatremia does not improve, we will consider switching hydrochlorothiazide to a calcium channel yvonne, but for now we will continue his ARB, diuretics, and doxazosin, and monitor electrolytes closely. Will not continue potassium. 5. Depression and anxiety. Continue escitalopram 10 mg daily. Given tenuous respiratory status, we will hold the patient's home benzo, but can restart as his respiratory status improves. The patient was also on loxapine as an outpatient, but was unable to elicit exact indication for this medication during interview. 6. Obstructive sleep apnea and possible obesity-hypoventilation syndrome. The patient will be in ICU for BiPAP as above. 7. DVT prophylaxis. Initiate Lovenox subcu daily. 8. Code status. Full code. TIME SPENT: Approximately 60 minutes was spent on admission of this patient, more than half of which was spent at bedside for interview and exam. [id number]/CPS #: [id number] MTDD
[2019-05-14] MEDS ORDERED: LORazepam INJ* 2 MG/ML 1 ML VIAL IV PUSH ONE (23:12)
[2019-05-14] MEDS ORDERED: Lorazepam PYXIS KEY PRN (23:12)
[2019-05-14] MEDS: Doxazosin TAB* 2 MG PO SCH (23:24)
[2019-05-14] MEDS: LOXAPINE 5 MG PO SCH (23:25)
[2019-05-14] MEDS: Enoxaparin(*) 40 MG/0.4 ML SYR SUBCUT SCH (23:25)
[2019-05-15] MEDS ORDERED: Lorazepam PYXIS KEY PRN (01:16)
[2019-05-15] MEDS ORDERED: LORazepam INJ* 2 MG/ML 1 ML VIAL IV PUSH ONE (01:16)
[2019-05-15] MEDS ORDERED: Succinylcholine* 20 MG/ML 10 ML VIAL ONE ×2 (03:14→03:18)
[2019-05-15] MEDS ORDERED: Propofol* 100 ML ONE (03:18)
[2019-05-15] MEDS ORDERED: Etomidate* 2 MG/ML 20 ML VIAL (40 MG) ONE (03:18)
[2019-05-15] MEDS ORDERED: Propofol* 100 ML IV SCH (03:30)
--- NOTE | 2019-05-15 03:37 | PN ---
Hospitalist Progress Note Date of Service: 05/15/19 Paged given worsening pCO2 and altered mental status, not improved after switch from nasal BiPAP to full face mask. pCO2 now [address] Brown from EM up for intubation. Pt given etomidate and succinylcholine. Bilateral breath sounds auscultated after procedure. Pending CXR STAT. Will place OG tube and repeat ABG. Propofol ordered for sedation.
[2019-05-15] MEDS ORDERED: Norepinephrine 16MCG/ML IVPRE* 4,000 MCG/250 ML BAG IV ONE (03:54)
[2019-05-15] MEDS ORDERED: Norepinephrine 16MCG/ML IVPRE* 4,000 MCG/250 ML BAG IV SCH ×2 (04:00)
[2019-05-15] MEDS: Norepinephrine 16MCG/ML IVPRE* 4,000 MCG/250 ML BAG IV SCH ×2 (04:50→12:11)
[2019-05-15] MEDS: Propofol* 100 ML IV SCH ×10 (05:20→23:29)
[2019-05-15] MEDS ORDERED: Furosemide IV* 10 MG/ML 10 ML VIAL (100 MG) IV SCH (06:00)
--- NOTE | 2019-05-15 06:19 | CONSULT ---
Consult Consult: Dr. Brown was called to ICU floor to intubate patient due to hypercarbia despite bipap treatment. Orotracheal intubation with 7.5 tube was done. Succinylcholine and etomidate were used. No complications with intubation, breath sounds were equal after procedure. Post intubation CXR showed ET tube to be 7 cm above julia. Procedures - Intubation Time of Intubation: 03:10 Intubation Method: orotracheal Tube Size (cm): 7.5 Medications: Succinylcholine - and etomidate Breath Sounds after Intubation: equal Intubation Complications: no complications Post Intubation Xray: Yes Progress/Xray Impression: ET tube is 7 cm above the julia.
[2019-05-15 06:45] LABS: Free T3 2.7 pg/mL (2.5-3.9)
[2019-05-15 06:47] LABS: Free T4 1.18 ng/dL (0.61-1.12)
[2019-05-15 07:13] LABS: Calcium 8.1 mg/dL (8.6-10.3); Chloride 92 mmol/L (101-111); Sodium 127 mmol/L (135-145)
[2019-05-15 07:19] LABS: BUN/Creatinine Ratio 16.7 (8-20); Blood Urea Nitrogen 16 mg/dL (6-24); EGFR African American 105.5 (>60); EGFR Non-African American 87.2 (>60); Glucose 108 mg/dL (70-100)
[2019-05-15 07:57] LABS: CO2 Carbon Dioxide 31 mmol/L (22-32)
[2019-05-15 08:41] LABS: Anion Gap 4 mmol/L (2-11)
[2019-05-15] MEDS ORDERED: Furosemide IV* 10 MG/ML VIAL (40 MG) IV SCH (09:00)
[2019-05-15] MEDS ORDERED: Valsartan TAB* 160 MG PO SCH (09:00)
[2019-05-15] MEDS ORDERED: Hydrochlorothiazide TAB* 25 MG PO SCH (09:00)
[2019-05-15] MEDS: Escitalopram * 10 MG TAB PO SCH (09:03)
[2019-05-15] MEDS ORDERED: Perflutren Lipid Microsphere* 3 ML VIAL ONE (11:04)
--- NOTE | 2019-05-15 12:26 | CONSULT ---
Consult Consult: Consultation Note -- Critical Care Requesting Physician: Reason for consult: Limitations in history/physical: Date of consult:05/15/2019 HPI: 39y M w/pmhx of HTN, obesity, Sleep Apnea, asthma in childhood, Anxiety disorder, depression, Peripheral venous insuff, lymphedema; comes to ER 05/14 for complaints of SOB for a few days to weeks. Mother also came with him and states that he has been increasingly been gaining weight, more so past month. no fever/chills. no diarrhea. has been on water pill for fluid buildup also. He stated he could not tolerate home CPAP machine and has been having lower oxygen levels at home for weeks also. In ER he was hypoxic to 70s, started on NC. CXR demonstrated pulm congestion. He was admitted for volume overload, respiratory failure, with ABG demonstrating hypercapnea and A-a gradient. Patient overnight became more lethargic, increasing O2 requirements, eventually requiring intubation. He is currently intubated in ICU, awakens on sedation vacation. on levophed which decreases with lower sedation. afebrile. anxious off sedation. mother at bedside giving history. has made ~4L urine output since admission last night. Off sedation he follows all commands. He still remains on 100% fio2 with peep 10 on PCV mode. ABG just performed demonstrates po2 157 on above settings. minimal secretions noted from ETT, afebrile. he appears very anxious on low sedation. 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 Allergies: Allergies Allergy/AdvReac Type Severity Reaction Status Date / Time No Known Allergies Allergy Verified 05/07/19 07:31 Home Medications: ALPRAZolam TAB* [Xanax TAB*] 0.5 mg PO TID PRN 05/14/19 [History Confirmed 05/14] Acetaminophen [Acetaminophen Extra Strength] 1,000 mg PO BID 05/14/19 [History Confirmed 05/14/19] Diclofenac 1% GEL (NF) [Voltaren 1% GEL (NF)] 1 applic TOPICAL TID MDD 3 [History Confirmed 05/14/19] Doxazosin TAB* [Cardura TAB*] 6 mg PO BEDTIME 05/14/19 [History Confirmed ] Escitalopram * [Lexapro 10 mg (NF)] 10 mg PO DAILY 05/14/19 [History Confirmed 05/14/19] Furosemide TAB* [Lasix TAB*] 60 mg PO BID 05/14/19 [History Confirmed 05/14/19] Loxapine (NF) 5 mg PO BEDTIME 05/14/19 [History Confirmed 05/14/19] OLANzapine TAB* [Zyprexa 10 MG TAB*] 10 mg PO DAILY 05/14/19 [History Confirmed 05/14/19] Potassium Chlor TAB* [Klor Con ER TAB*] 20 meq PO BEDTIME 05/14/19 [History Confirmed 05/14/19] Potassium Chlor TAB* [Klor Con ER TAB*] 40 meq PO QAM 05/14/19 [History Confirmed 05/14/19] Valsartan/HCTZ 320/25(NF) [Diovan Hct 320/25(NF)] 1 tab PO DAILY 05/14/19 [ History Confirmed 05/14/19] Tele: NSR Vitals: Vital Signs Temp 99.7 F 05/15/19 12:00 Pulse 85 05/15/19 12:00 Resp 18 05/15/19 10:00 BP 118/71 05/15/19 12:00 Pulse Ox 96 05/15/19 12:00 Intake & Output 05/14/19 05/15/19 05/15/19 18:59 06:59 18:59 Intake Total 142 Output Total 3162 830 Balance -3020 -830 Weight 274.423 kg 294 kg Intake: Medicated IV 142 Propofol 142 Output: Roberts 3162 830 O2/Vent: PCV 30/10, Rate 18, 100% fio2 -> changed to PCV 30/7, 80%, rate 20 Infusions: propofol , levophed Current Medications: Acetaminophen (Tylenol Tab*) 975 mg PO Q8H PRN PRN Reason: Pain - Mild to Moderate Al Hydrox/Mg Hydrox/Simethicone (Maalox Plus*) 30 ml PO Q6H PRN PRN Reason: INDIGESTION Albuterol (Ventolin 2.5 Mg/3 Ml Neb.Izabella*) 2.5 mg INH [id number] AWAKE PRN PRN Reason: sob/wheezing Chlorhexidine Gluconate (Peridex Mouth Wash 0.12%*) 15 ml TOPICAL Q4HR JULIA Doxazosin Mesylate (Cardura Tab*) 6 mg PO BEDTIME JULIA Last Admin: 05/14/19 23:24 Dose: Not Given Enoxaparin Sodium (Lovenox(*)) 40 mg SUBCUT Q24H JULIA Last Admin: 05/14/19 23:25 Dose: 40 mg Escitalopram Oxalate (Lexapro *) 10 mg PO DAILY JULIA Last Admin: 05/15/19 09:03 Dose: 10 mg Furosemide (Lasix Iv*) 80 mg IV Q24H JULIA Last Admin: 05/15/19 05:35 Dose: 80 mg Propofol (Diprivan*) 100 mls @ 0 mls/hr IV .PER PROTOCOL JULIA; Protocol Last Admin: 05/15/19 10:41 Dose: 52.9 mls/hr Norepinephrine Bitartrate (Levophed 16 Mcg/Ml Premix*) 4,000 mcg in 250 mls @ 18.75 mls/hr IV .INITIAL RATE JULIA; Protocol Last Admin: 05/15/19 12:11 Dose: 18.75 mls/hr Magnesium Hydroxide (Milk Of Magnesia Liq*) 30 ml PO Q4H PRN PRN Reason: CONSTIPATION Miscellaneous (Ativan Pyxis Black) 1 ea N/A .ATIVAN IV BLACK PRN PRN Reason: PYXIS BLACK Pto: *Loxapine 5mg (Capsule*) 1 dose PO BEDTIME JULIA; Protocol Last Admin: 05/14/19 23:25 Dose: Not Given Physical Exam: Constitutional: intubated, sedated, awakens and follows commands on lower sedation , anxious, no distress, no diaphoresis, obese+ Head: normocephalic, atraumatic Eyes: no pallor, no icterus ENT: moist mucous membranes Neck: soft, supple, no jvd CVS: normal rate, regular, no murmur Chest/Resp: bilateral air entry, no rhales, no wheeze, no rhonchi, no acc muscle use Abdomen/GI: soft, nontender, nondistended, BS+ Ext/Msk: warm, pulses+, no edema Skin: intact, warm Neuro: intubated, sedated, reactive pupils+, moving all ext on lower sedation Psych: anxious on lower sedation, difficult to determine Labs: Laboratory Results - last 24 hr 05/14/19 05/14/19 05/14/19 18:07 18:07 18:07 WBC 11.5 H RBC 5.59 H Hgb 15.0 Hct 47 MCV 85 MCH 27 MCHC 32 RDW 19 H Plt Count 191 MPV 7.8 Neut % (Auto) 78.3 Lymph % (Auto) 9.6 Eaton % (Auto) 9.4 Eos % (Auto) 2.1 Baso % (Auto) 0.6 Absolute Neuts (auto) 9.0 H Absolute Lymphs (auto) 1.1 Absolute Monos (auto) 1.1 H Absolute Eos (auto) 0.2 Absolute Basos (auto) 0.1 Absolute Nucleated RBC 0.0 Nucleated RBC % 0.2 Patient Temperature ABG pH ABG pH (Temp Correct) ABG pCO2 ABG pCO2 (Temp Corrct ABG pO2 ABG pO2 (Temp Correct ABG HCO3 ABG O2 Saturation ABG Base Excess VBG pH VBG pCO2 VBG pO2 VBG HCO3 VBG O2 Saturation VBG Base Excess Respiration Rate O2 Delivery Device Ventilator Type Vent Mode FiO2 Inspiratory Time PEEP Pressure Support Pressure Control EPAP IPAP BiPAP Sodium 131 L Potassium 5.1 H Chloride 91 L Carbon Dioxide 35 H Anion Gap 5 BUN 16 Creatinine 0.81 Est GFR ( Amer) 128.4 Est GFR (Non-Af Amer) 106.1 BUN/Creatinine Ratio 19.8 Glucose 102 H POC Glucose (mg/dL) Hemoglobin A1c Calcium 8.9 Magnesium 2.1 Total Bilirubin 0.50 AST 16 ALT 15 Alkaline Phosphatase 57 Troponin I 0.09 H* B-Natriuretic Peptide 67 Total Protein 7.1 Albumin 3.7 Globulin 3.4 Albumin/Globulin Ratio 1.1 Triglycerides 65 Cholesterol 112 LDL Cholesterol 69 HDL Cholesterol 30.3 TSH 9.20 H Free T4 Free T3 Urine Color Urine Appearance Urine pH Ur Specific [place] Urine Protein Urine Ketones Urine Blood Urine Nitrate Urine Bilirubin Urine Urobilinogen Ur Leukocyte Esterase Urine Glucose 05/14/19 05/14/19 05/14/19 18:07 18:07 18:19 WBC RBC Hgb Hct MCV MCH MCHC RDW Plt Count MPV Neut % (Auto) Lymph % (Auto) Eaton % (Auto) Eos % (Auto) Baso % (Auto) Absolute Neuts (auto) Absolute Lymphs (auto) Absolute Monos (auto) Absolute Eos (auto) Absolute Basos (auto) Absolute Nucleated RBC Nucleated RBC % Patient Temperature ABG pH ABG pH (Temp Correct) ABG pCO2 ABG pCO2 (Temp Corrct ABG pO2 ABG pO2 (Temp Correct ABG HCO3 ABG O2 Saturation ABG Base Excess VBG pH 7.26 L VBG pCO2 93 H VBG pO2 < 38.0 VBG HCO3 31.8 H VBG O2 Saturation 46.8 L VBG Base Excess 10.6 H Respiration Rate O2 Delivery Device Ventilator Type Vent Mode FiO2 Inspiratory Time PEEP Pressure Support Pressure Control EPAP IPAP BiPAP Sodium Potassium Chloride Carbon Dioxide Anion Gap BUN Creatinine Est GFR ( Amer) Est GFR (Non-Af Amer) BUN/Creatinine Ratio Glucose POC Glucose (mg/dL) Hemoglobin A1c 6.2 H Calcium Magnesium Total Bilirubin AST ALT Alkaline Phosphatase Troponin I B-Natriuretic Peptide Total Protein Albumin Globulin Albumin/Globulin Ratio Triglycerides Cholesterol LDL Cholesterol HDL Cholesterol TSH Free T4 Free T3 Urine Color Yellow Urine Appearance Clear Urine pH 6.0 Ur Specific [place]on[place] 1.005 L Urine Protein Negative Urine Ketones Negative Urine Blood Negative Urine Nitrate Negative Urine Bilirubin Negative Urine Urobilinogen Negative Ur Leukocyte Esterase Negative Urine Glucose Negative 05/14/19 05/15/19 05/15/19 20:40 01:25 01:25 WBC RBC Hgb Hct MCV MCH MCHC RDW Plt Count MPV Neut % (Auto) Lymph % (Auto) Eaton % (Auto) Eos % (Auto) Baso % (Auto) Absolute Neuts (auto) Absolute Lymphs (auto) Absolute Monos (auto) Absolute Eos (auto) Absolute Basos (auto) Absolute Nucleated RBC Nucleated RBC % Patient Temperature Not Reportable ABG pH 7.20 L ABG pH (Temp Correct) Not Reportable ABG pCO2 115 H* ABG pCO2 (Temp Corrct Not Reportable ABG pO2 137 H ABG pO2 (Temp Correct Not Reportable ABG HCO3 34.2 H ABG O2 Saturation 99.1 H ABG Base Excess 11.9 H VBG pH VBG pCO2 VBG pO2 VBG HCO3 VBG O2 Saturation VBG Base Excess Respiration Rate 12 O2 Delivery Device bipap Ventilator Type Not Reportable Vent Mode s/t FiO2 100 Inspiratory Time Not Reportable PEEP Not Reportable Pressure Support Not Reportable Pressure Control Not Reportable EPAP 14 IPAP 18 BiPAP Not Reportable Sodium 131 L Potassium 5.4 H Chloride 89 L Carbon Dioxide 40 H Anion Gap 2 BUN 15 Creatinine 0.76 Est GFR ( Amer) 138.2 Est GFR (Non-Af Amer) 114.2 BUN/Creatinine Ratio 19.7 Glucose 117 H POC Glucose (mg/dL) 135 H Hemoglobin A1c Calcium 8.9 Magnesium 2.0 Total Bilirubin AST ALT Alkaline Phosphatase Troponin I 0.11 H* B-Natriuretic Peptide Total Protein Albumin Globulin Albumin/Globulin Ratio Triglycerides Cholesterol LDL Cholesterol HDL Cholesterol TSH Free T4 Free T3 Urine Color Urine Appearance Urine pH Ur Specific [place] Urine Protein Urine Ketones Urine Blood Urine Nitrate Urine Bilirubin Urine Urobilinogen Ur Leukocyte Esterase Urine Glucose 05/15/19 05/15/19 05/15/19 02:40 05:08 05:26 WBC RBC Hgb Hct MCV MCH MCHC RDW Plt Count MPV Neut % (Auto) Lymph % (Auto) Eaton % (Auto) Eos % (Auto) Baso % (Auto) Absolute Neuts (auto) Absolute Lymphs (auto) Absolute Monos (auto) Absolute Eos (auto) Absolute Basos (auto) Absolute Nucleated RBC Nucleated RBC % Patient Temperature Not Reportable Not Reportable ABG pH 7.13 L* 7.25 L ABG pH (Temp Correct) Not Reportable Not Reportable ABG pCO2 Not Reportable 94 H* ABG pCO2 (Temp Corrct 126 H* Not Reportable ABG pO2 135 H 127 H ABG pO2 (Temp Correct Not Reportable Not Reportable ABG HCO3 TNP 32.7 H ABG O2 Saturation 99.6 H 98.8 H ABG Base Excess TNP 10.0 H VBG pH VBG pCO2 VBG pO2 VBG HCO3 VBG O2 Saturation VBG Base Excess Respiration Rate 12 18 O2 Delivery Device bipap vent Ventilator Type Not Reportable Not Reportable Vent Mode Not Reportable pcv FiO2 100 100 Inspiratory Time Not Reportable 0.75 PEEP Not Reportable 10 Pressure Support Not Reportable Not Reportable Pressure Control Not Reportable 30 EPAP 14 Not Reportable IPAP 22 Not Reportable BiPAP Not Reportable Not Reportable Sodium Cancelled Potassium Cancelled Chloride Cancelled Carbon Dioxide Cancelled Anion Gap Cancelled BUN Cancelled Creatinine Cancelled Est GFR ( Amer) Cancelled Est GFR (Non-Af Amer) Cancelled BUN/Creatinine Ratio Cancelled Glucose Cancelled POC Glucose (mg/dL) Hemoglobin A1c Calcium Cancelled Magnesium Cancelled Total Bilirubin AST ALT Alkaline Phosphatase Troponin I Cancelled B-Natriuretic Peptide Total Protein Albumin Globulin Albumin/Globulin Ratio Triglycerides Cholesterol LDL Cholesterol HDL Cholesterol TSH Free T4 Free T3 Urine Color Urine Appearance Urine pH Ur Specific [place] Urine Protein Urine Ketones Urine Blood Urine Nitrate Urine Bilirubin Urine Urobilinogen Ur Leukocyte Esterase Urine Glucose 05/15/19 05/15/19 05/15/19 05:26 06:30 11:25 WBC RBC Hgb Hct MCV MCH MCHC RDW Plt Count MPV Neut % (Auto) Lymph % (Auto) Eaton % (Auto) Eos % (Auto) Baso % (Auto) Absolute Neuts (auto) Absolute Lymphs (auto) Absolute Monos (auto) Absolute Eos (auto) Absolute Basos (auto) Absolute Nucleated RBC Nucleated RBC % Patient Temperature 37.6 ABG pH 7.32 L ABG pH (Temp Correct) Not Reportable ABG pCO2 81 H* ABG pCO2 (Temp Corrct Not Reportable ABG pO2 157 H ABG pO2 (Temp Correct Not Reportable ABG HCO3 34.2 H ABG O2 Saturation 100.0 H ABG Base Excess 11.9 H VBG pH VBG pCO2 VBG pO2 VBG HCO3 VBG O2 Saturation VBG Base Excess Respiration Rate 18 O2 Delivery Device vent Ventilator Type Not Reportable Vent Mode Pcv FiO2 100 Inspiratory Time .75 PEEP 10 Pressure Support Not Reportable Pressure Control 30 EPAP Not Reportable IPAP Not Reportable BiPAP Not Reportable Sodium 127 L Potassium TNP Chloride 92 L Carbon Dioxide 31 Anion Gap 4 BUN 16 Creatinine 0.96 Est GFR ( Amer) 105.5 Est GFR (Non-Af Amer) 87.2 BUN/Creatinine Ratio 16.7 Glucose 108 H POC Glucose (mg/dL) Hemoglobin A1c Calcium 8.1 L Magnesium 2.0 Total Bilirubin AST ALT Alkaline Phosphatase Troponin I B-Natriuretic Peptide Total Protein Albumin Globulin Albumin/Globulin Ratio Triglycerides Cholesterol LDL Cholesterol HDL Cholesterol TSH Free T4 1.18 H Free T3 2.70 Urine Color Urine Appearance Urine pH Ur Specific [place] Urine Protein Urine Ketones Urine Blood Urine Nitrate Urine Bilirubin Urine Urobilinogen Ur Leukocyte Esterase Urine Glucose Imaging: CXR 05/14 - cardiomegaly, pulm congestion+ cxr 05/15 - ett above julia, cardiomegaly+, pulm congestion+ Assessment: 39y M w/pmhx of HTN, obesity, Sleep Apnea, asthma in childhood, Anxiety disorder, depression, Peripheral venous insuff, lymphedema; comes to ER 05/14 for complaints of SOB for a few days to weeks. Mother also came with him and states that he has been increasingly been gaining weight, more so past month. no fever/chills. no diarrhea. has been on water pill for fluid buildup also. He stated he could not tolerate home CPAP machine and has been having lower oxygen levels at home for weeks also. In ER he was hypoxic to 70s, started on NC. CXR 05/14 demonstrated pulm congestion. He was admitted for volume overload, respiratory failure, with ABG demonstrating hypercapnea and A- a gradient. Patient overnight became more lethargic, increasing O2 requirements , eventually requiring intubation. -Acute hypoxic and hypercapneic respiratory failure, intubated 05/15 -Acute Pulmonary Congestion -r/o DVT -Hyperkalemia -Hyponatremia -Shock, 2/2 to sedation/vasodilatation -Obesity -Anxiety disorder Sleep Apnea Lymphedema Plan: Neuro- -on propofol sedation; awake on less -start precedex overlap and bridge over -Ativan PRN -cont lexapro, olanzapine , cont xanax prn once extubated -Delirium prec; avoid BDZ CVS- -shock; likely from sedation/propofol; cont levophed, wean down if able to bridge over to another sedative -no IVF -cont lasix IV diuretics; givne lasix 80mg IV x1 this morning and overnight; cont lasix 80mg daily -follow uop -place PICC line -check BMP/mg/phos later today -hold antihypertensives -TTE to eval for effusion/LV function; pending read -Titrate Pressors to Maintain MAP>65 Resp- -Intubated; on PCV mode now -ABG with improved ph and CO2 -changed PCV to rate 20, 80% fio2, 30/7 -CXR tomorrow -cont IV diuretics -no suspected infection, no secretions; no abx indicated currently -component of FRANCK may have been causing the worsening respiratory failure especially with noncompliance with NIV -check LE duplex for DVT -may need CT chest w/o contrast if hypoxia not improving with diuresis -Wean Fio2 to keep sat>92% -Bronchodilators PRN, Aspiration prec, Pulmonary Toilet -VAP bundle ID- afebrile. wbc 11. nontoxic. no clear focal infiltrate. low suspicion for infection. monitor off abx. GI- -NPO -maintain NGT -GI prophylaxis - h2b Renal- -Cr okay; Hyperkalemia 5.2 before; given diuretics -check BMP again 3pm and mg/phos -good urine output with lasix -cont lasix 80mg iv daily; re-eval later today for more diuretics -strict I/O, replete to keep K>4, Mg>2 -roberts as indicated Heme- hg stable, plt stable -DVT porph with chemical and SCDs -check LE duplex for DVT Endo- Maintain BG<200, insulin protocol as needed; noted hba1c 6.2, likely pre- diabetic range now. -tsh 9, normal free t3/t4 level. not very convincing if hypothyroid, which may be contributing to weight gain also. obtain endo consult for further evaluation. Musculsk- pressure ulcer prophylaxis. Bedrest. Wounds- none Nutrition- NPO today DVT prophylaxis: SCD, enoxaparin sq GI prophylaxis: h2b Central Line: no Arterial Line: no Roberts Cathetor: yes Disposition: Patient requires Critical Care/ICU for acute respiratory failure req intubation, shock on pressors discussed plan with martha at bedside, she was there when sedation vacation was performed. plan for ongoing diuresis, picc line and reassessment later today or tomorrow for further weaning depending on oxygen requirements. Patient Clinical Status: guarded, critical Code Status: full code Total Critical Care time is 60 minutes, excluding procedures/teaching Sameer Moscoso MD Dam Worker (Electronically Signed)
[2019-05-15] MEDS ORDERED: ALPRAZolam TAB* 0.5 MG PO PRN (12:47)
--- NOTE | 2019-05-15 13:09 | ECHO ---
*[facility]* [place] [address] Fax #: [phone] Transthoracic Echocardiogram Patient: Shailesh Ramires : 1980 Study Date: 05/15/2019 Age: 39 Gender: M HR: 73 bpm Height: 72 in /182.9 cm BSA: 3.51 m^2 Weight: 646.7 lb /293.9 kg BMI: 87.9 kg/m^2 *Secretary Administrative Assistant: * Jina Cain [facility] *Referring Physician: * Jaclyn Diggs *Reading Physician: * Lizzette Middleton MD Indications: Congestive Heart Failure. Resp Insufficiency. History: Risk factors: Hypertension. Morbidly obese. Conclusions Summary: - Procedure narrative: Transthoracic echocardiography was performed. Image quality was poor. - Left ventricle: The cavity size is normal. Wall thickness is mildly to moderately increased. Systolic function is probably normal. The estimated ejection fraction is 50-55%. - Right ventricle: Systolic function is low normal. - Grossly normal valve function. - No prior echocardiogram to compare. Recommendations: If clinically indicated consider transesophageal echocardiogram as imaging poor. MUGA could provide accurate ejection fraction but won't evaluate valve function. Study data: Transthoracic echocardiogram. Procedure: Transthoracic echocardiography was performed. Image quality was poor. The study was technically limited due to body habitus and Patient on ventilator. Intravenous Definity , 3 mlswas administered. Image enhancement administered by LUCIANA Connmanager intensive care unit. Complete 2D, spectral Doppler, and color flow Doppler. Location: ICU Patient status: Inpatient. Patient room number: 7. Rhythm: Normal sinus rhythm. Findings Left ventricle: The cavity size is normal. Wall thickness is mildly to moderately increased. Systolic function is probably normal. The estimated ejection fraction is 50-55%. Although no diagnostic regional wall motion abnormality is identified, this possibility cannot be completely excluded on the basis of this study. Left ventricular diastolic function parameters are indeterminate. Right ventricle: The cavity size is normal. Systolic function is low normal. Left atrium: The atrium is mildly to moderately dilated. Right atrium: Not well visualized. Mitral valve: Not well visualized. There is no significant regurgitation. Aortic valve: Not well visualized. There is no evidence of stenosis. There is no significant regurgitation. Tricuspid valve: Not well visualized. There is no significant regurgitation. Pulmonic valve: Not well visualized. There is no significant regurgitation. Aorta: Aortic root: The aortic root is poorly visualized. Ascending aorta: The ascending aorta is poorly visualized. Aortic arch: The aortic arch is appears normal. Pericardium: There is no significant pericardial effusion. Pulmonary arteries: Not well visualized. Systolic pressure can not be accurately estimated. Systemic veins: Inferior vena cava: The vessel is dilated. Respirophasic changes in dimension are absent. Measurements Left ventricle Value Ref Aortic valve Value Ref SOLEDAD, LAX 4.6 cm 4.2 - 5.8 Peak v, S 1.21 m/sec ---- ESD, LAX 3.6 cm 2.5 - 4.0 VTI, S 25.6 cm ---- FS, LAX (L) 23 % 25 - 43 Mean grad, S 4.0 mm Hg ---- PW, ED, LAX (H) 1.3 cm 0.6 - 1.0 Peak grad, S 6.0 mm Hg ---- EF (L) 46 % 52 - 72 E', lat rabia, TDI (L) 9.9 cm/sec >=10.0 Mitral valve Value Ref E/e', lat rabia, TDI 11 --------- Peak E 1.09 m/sec ---- Peak A 0.43 m/sec ---- LVOT Value Ref Decel time 219 ms ---- Peak ro, S 0.66 m/sec --------- Peak grad, D 4.8 mm Hg ---- Mean grad, S 1 mm Hg --------- Peak E/A ratio 2.5 ---- Ventricular septum Value Ref Pulmonic valve Value Ref IVS, ED (H) 1.4 cm 0.6 - 1.0 Peak v, S 0.71 m/sec ---- Peak grad, S 2.0 mm Hg ---- Right ventricle Value Ref SOLEDAD, LAX 3.4 cm --------- Aortic arch Value Ref Arch diam 3.0 cm ---- Left atrium Value Ref ML dim, A4C 4.1 cm --------- Decending aorta Value Ref SI dim, A4C 6.0 cm --------- Leola peak ro 0.53 m/sec ---- Right atrium Value Ref Inferior vena cava Value Ref Estimated RAP 8 mm Hg --------- Diam 3.9 cm ---- Legend: (L) and (H) monico values outside specified reference range. Prepared and electronically signed by Lizzette Middleton MD 05/15/2019 13:09
[2019-05-15] MEDS: Chlorhexidine MOUTHWASH 0.12%* 15 ML UDC TOPICAL SCH ×4 (13:21→21:39)
[2019-05-15] MEDS: Famotidine IV* 10 MG/ML 2 ML (20 mg) IV SLOW PU SCH ×2 (14:44→20:26)
[2019-05-15] MEDS: OLANzapine TAB* 10 MG PO SCH (14:44)
[2019-05-15 17:38] LABS: Anion Gap 5 mmol/L (2-11); Blood Urea Nitrogen 16 mg/dL (6-24); CO2 Carbon Dioxide 39 mmol/L (22-32); Calcium 8.7 mg/dL (8.6-10.3); Chloride 90 mmol/L (101-111); EGFR African American 130.2 (>60); EGFR Non-African American 107.6 (>60); Glucose 79 mg/dL (70-100); Phosphorus 5.1 mg/dL (2.5-5.0); Potassium 4.9 mmol/L (3.5-5.0); Sodium 134 mmol/L (135-145)
[2019-05-15 17:40] LABS: Troponin I 0.11 ng/mL (<0.04)
[2019-05-15] MEDS ORDERED: Furosemide IV* 10 MG/ML VIAL (40 MG) IV ONE (18:33)
[2019-05-15] MEDS: LOXAPINE 5 MG PO SCH (20:25)
[2019-05-15] MEDS: Doxazosin TAB* 2 MG PO SCH (20:26)
[2019-05-15] MEDS: Enoxaparin(*) 40 MG/0.4 ML SYR SUBCUT SCH (20:26)
[2019-05-16] MEDS: Propofol* 100 ML IV SCH ×16 (01:13→23:23)
[2019-05-16] MEDS: Chlorhexidine MOUTHWASH 0.12%* 15 ML UDC TOPICAL SCH ×6 (03:00→20:38)
[2019-05-16 05:36] LABS: Hematocrit 46 % (42-52); Hemoglobin 14.8 g/dL (14.0-18.0); Mean Corpuscular HGB Conc 32 g/dL (31-36); Mean Corpuscular Hemoglobin 27 pg (27-31); Mean Corpuscular Volume 83 fL (80-94); Mean Platelet Volume 8.1 fL (7.4-10.4); Platelet Count 186 10^3/uL (150-450); Red Blood Count 5.49 10^6 /uL (4.18-5.48); Red Cell Distribution Width 19 % (10-15); White Blood Count 8.5 10^3/uL (3.5-10.8)
[2019-05-16 05:56] LABS: Calcium 8.5 mg/dL (8.6-10.3); EGFR African American 151.9 (>60); EGFR Non-African American 125.5 (>60); Magnesium 1.9 mg/dL (1.9-2.7); Phosphorus 4.7 mg/dL (2.5-5.0); Potassium 4.5 mmol/L (3.5-5.0)
[2019-05-16] MEDS ORDERED: Magnesium Sulfate 2 GM IV (Premix) IVPB ONE (06:30)
[2019-05-16] MEDS: Escitalopram * 10 MG TAB PO SCH (08:57)
[2019-05-16] MEDS: Furosemide IV* 10 MG/ML VIAL (40 MG) IV SCH ×2 (08:57→20:17)
[2019-05-16] MEDS: Famotidine IV* 10 MG/ML 2 ML (20 mg) IV SLOW PU SCH ×2 (08:57→20:24)
[2019-05-16] MEDS: OLANzapine TAB* 10 MG PO SCH (08:58)
--- NOTE | 2019-05-16 11:37 | PN ---
Progress Note - Progress Note Date of Service: 05/16/19 Note: Progress Note -- Critical Care 24 hour events -remains intubated; off levophed; on propofol -afebrile -great urine output past 24 hours -no sig events overnight otherwise -Limited ROS due to intubate state Tele: NSR Vitals: Vital Signs Temp 98.6 F 05/16/19 11:00 Pulse 77 05/16/19 11:00 Resp 20 05/16/19 11:00 BP 122/72 05/16/19 11:00 Pulse Ox 97 05/16/19 11:00 Intake & Output 05/15/19 05/16/19 05/16/19 18:59 06:59 18:59 Intake Total 849 387 Output Total 2400 3640 2750 Balance -1551 -1113 -2750 Weight 294.64 kg Intake: Medicated IV 729 327 Levophed 201 Propofol 528 327 Tube Feeding Flush Amount 60 NG Tube Irrigate Amount 120 Output: NG Tube Drainage Amount 650 100 Urine 120 Roberts 1630 3540 2750 O2/Vent: PCV 30/8, Rate 20, 90% fio2 Infusions: propofol , levophed off Current Medications: Acetaminophen (Tylenol Tab*) 975 mg PO Q8H PRN PRN Reason: Pain - Mild to Moderate Al Hydrox/Mg Hydrox/Simethicone (Maalox Plus*) 30 ml PO Q6H PRN PRN Reason: INDIGESTION Albuterol (Ventolin 2.5 Mg/3 Ml Neb.Izabella*) 2.5 mg INH [id number] AWAKE PRN PRN Reason: sob/wheezing Alprazolam (Xanax Tab*) 0.5 mg PO TID PRN PRN Reason: ANXIETY Chlorhexidine Gluconate (Peridex Mouth Wash 0.12%*) 15 ml TOPICAL Q4HR [facility] Last Admin: 05/16/19 10:39 Dose: 15 ml Doxazosin Mesylate (Cardura Tab*) 6 mg PO BEDTIME JULIA Last Admin: 05/15/19 20:26 Dose: Not Given Enoxaparin Sodium (Lovenox(*)) 40 mg SUBCUT Q24H [facility] Last Admin: 05/15/19 20:26 Dose: 40 mg Escitalopram Oxalate (Lexapro *) 10 mg PO DAILY [facility] Last Admin: 05/16/19 08:57 Dose: 10 mg Famotidine (Pepcid Iv*) 20 mg IV SLOW PU BID J[facility] Last Admin: 05/16/19 08:57 Dose: 20 mg Furosemide (Lasix Iv*) 40 mg IV BID JUL[facility] Last Admin: 05/16/19 08:57 Dose: 40 mg Heparin Sodium (Porcine) (Heparin Flush Picc/Ml/Cvc(*)) 1 - 3 ml FLUSH 0600, 1800 [facility]; Protocol Last Admin: 05/16/19 05:44 Dose: 1 ml Propofol (Diprivan*) 100 mls @ 0 mls/hr IV .PER PROTOCOL JULIA; Protocol Last Admin: 05/16/19 10:39 Dose: 61.7 mls/hr Norepinephrine Bitartrate (Levophed 16 Mcg/Ml Premix*) 4,000 mcg in 250 mls @ 18.75 mls/hr IV .INITIAL RATE [facility]; Protocol Last Admin: 05/15/19 12:11 Dose: 18.75 mls/hr Magnesium Hydroxide (Milk Of Magnesia Liq*) 30 ml PO Q4H PRN PRN Reason: CONSTIPATION Miscellaneous (Ativan Pyxis Black) 1 ea N/A .ATIVAN IV BLACK PRN PRN Reason: PYXIS BLACK Pto: *Loxapine 5mg (Capsule*) 1 dose PO BEDTIME [facility]; Protocol Last Admin: 05/15/19 20:25 Dose: 1 dose Olanzapine (Zyprexa Tab*) 10 mg PO DAILY [facility] Last Admin: 05/16/19 08:58 Dose: 10 mg Physical Exam: Constitutional: intubated, sedated, awakens and follows commands on lower sedation , anxious, no distress, no diaphoresis, obese+ Head: normocephalic, atraumatic Eyes: no pallor, no icterus ENT: moist mucous membranes Neck: soft, supple, no jvd CVS: normal rate, regular, no murmur Chest/Resp: bilateral air entry, no rhales, no wheeze, no rhonchi, no acc muscle use Abdomen/GI: soft, nontender, nondistended, BS+ Ext/Msk: warm, pulses+, no edema Skin: intact, warm Neuro: intubated, sedated, reactive pupils+, moving all ext on lower sedation Psych: anxious on lower sedation, difficult to determine Labs: Laboratory Results - last 24 hr 05/15/19 05/15/19 05/15/19 11:25 17:00 19:40 WBC RBC Hgb Hct MCV MCH MCHC RDW Plt Count MPV Patient Temperature 37.6 ABG pH 7.32 L ABG pH (Temp Correct) Not Reportable ABG pCO2 81 H* ABG pCO2 (Temp Corrct Not Reportable ABG pO2 157 H ABG pO2 (Temp Correct Not Reportable ABG HCO3 34.2 H ABG O2 Saturation 100.0 H ABG Base Excess 11.9 H VBG pH 7.34 VBG pCO2 75 H VBG pO2 48.0 H VBG HCO3 33.3 H VBG O2 Saturation 82.2 H VBG Base Excess 11.4 H Respiration Rate 18 O2 Delivery Device vent Ventilator Type Not Reportable Vent Mode Pcv FiO2 100 Inspiratory Time .75 PEEP 10 Pressure Support Not Reportable Pressure Control 30 EPAP Not Reportable IPAP Not Reportable BiPAP Not Reportable Sodium 134 L Potassium 4.9 Chloride 90 L Carbon Dioxide 39 H Anion Gap 5 BUN 16 Creatinine 0.80 Est GFR ( Amer) 130.2 Est GFR (Non-Af Amer) 107.6 BUN/Creatinine Ratio 20.0 Glucose 79 Calcium 8.7 Phosphorus 5.1 H Magnesium 2.0 Troponin I 0.11 H* 05/16/19 05/16/19 05:10 05:10 WBC 8.5 RBC 5.49 H Hgb 14.8 Hct 46 MCV 83 MCH 27 MCHC 32 RDW 19 H Plt Count 186 MPV 8.1 Patient Temperature ABG pH ABG pH (Temp Correct) ABG pCO2 ABG pCO2 (Temp Corrct ABG pO2 ABG pO2 (Temp Correct ABG HCO3 ABG O2 Saturation ABG Base Excess VBG pH VBG pCO2 VBG pO2 VBG HCO3 VBG O2 Saturation VBG Base Excess Respiration Rate O2 Delivery Device Ventilator Type Vent Mode FiO2 Inspiratory Time PEEP Pressure Support Pressure Control EPAP IPAP BiPAP Sodium 132 L Potassium 4.5 Chloride 90 L Carbon Dioxide 39 H Anion Gap 3 BUN 14 Creatinine 0.70 Est GFR ( Amer) 151.9 Est GFR (Non-Af Amer) 125.5 BUN/Creatinine Ratio 20.0 Glucose 70 Calcium 8.5 L Phosphorus 4.7 Magnesium 1.9 Troponin I Imaging: CXR 05/14 - cardiomegaly, pulm congestion+ cxr 05/15 - ett above julia, cardiomegaly+, pulm congestion+ cxr 05/16 - obese, congestion++, cardiomegaly DUplex 05/15 - no DVT Assessment: 39y M w/pmhx of HTN, obesity, Sleep Apnea, asthma in childhood, Anxiety disorder, depression, Peripheral venous insuff, lymphedema; comes to ER 05/14 for complaints of SOB for a few days to weeks. Mother also came with him and states that he has been increasingly been gaining weight, more so past month. no fever/chills. no diarrhea. has been on water pill for fluid buildup also. He stated he could not tolerate home CPAP machine and has been having lower oxygen levels at home for weeks also. In ER he was hypoxic to 70s, started on NC. CXR 05/14 demonstrated pulm congestion. He was admitted for volume overload, respiratory failure, with ABG demonstrating hypercapnea and A- a gradient. Patient overnight became more lethargic, increasing O2 requirements , eventually requiring intubation. -Acute hypoxic and hypercapneic respiratory failure, intubated 05/15 -Acute Pulmonary Congestion -r/o DVT -Hyperkalemia -Hyponatremia -Shock, / to sedation/vasodilatation -Obesity -Anxiety disorder Sleep Apnea Lymphedema Plan: Neuro- -on propofol sedation; awake on less -will consider precedex overlap and bridge today but propofol has kept resp synchronization -Ativan PRN -cont lexapro, olanzapine , cont xanax prn once extubated -Delirium prec; avoid BDZ CVS- -shock; likely from sedation/propofol; off levophed now; BP stable -good urine output with lasix; 6+L out 24 hours -CVP 15 still, mixed venous was 85% -responding to diuresis, likely has overload -discussed with family, will consider a [place] for better hemodynamics and assess PA and PCW pressures -cont lasix 40mg IV bid -hold antihypertensives -TTE to eval for effusion/LV function; pending read -Titrate Pressors to Maintain MAP>65 Resp- -Intubated; on PCV mode now; still on 90%, labile o2 sats -may need art line also today -cxr 05/16 pulm congestion+ -cont IV diuretics -no suspected infection, no secretions; no abx indicated currently -component of FRANCK may have been causing the worsening respiratory failure especially with noncompliance with NIV as well as obesity hypoventilation, may have underlying diastolic heart failure also -no DVT on LE duplex -discussed [facility] radiology; he is obese and previous CT abd were poor quality; CT chest would likely be poor quality and not able to completely asses for r/o PE, he is 600+ lbs, no benefit for poor quality CT chest -re-eval after RHC -Wean Fio2 to keep sat>92% -Bronchodilators PRN, Aspiration prec, Pulmonary Toilet -VAP bundle ID- afebrile. wbc 11-8. nontoxic. no clear focal infiltrate, congestion+. low suspicion for infection. monitor off abx. GI- -NPO; start NGT Promote feeds 10cc/hr to goal 40cc/hr -GI prophylaxis - h2b Renal- -Cr okay; good uop with lasix; cont lasix 40mg iv bid -Hyperkalemia improved -BMP q12h -strict I/O, replete to keep K>4, Mg>2 -roberts as indicated Heme- hg stable, plt stable -DVT porph with chemical and SCDs -LE duplex neg for DVTs Endo- Maintain BG<200, insulin protocol as needed; noted hba1c 6.2, likely pre- diabetic range now. -tsh 9, normal free t3/t4 level. not very convincing if hypothyroid, which may be contributing to weight gain also. will have endo eval once stabilized Musculsk- pressure ulcer prophylaxis. Bedrest. Wounds- none Nutrition- start promote TF today DVT prophylaxis: SCD, enoxaparin sq GI prophylaxis: h2b Central Line: PICC Right arm 05/15 Arterial Line: no Roberts Cathetor: yes Disposition: Patient requires Critical Care/ICU for acute respiratory failure req intubation, shock on pressors Patient Clinical Status: guarded, critical Code Status: full code Total Critical Care time is 45 minutes, excluding procedures/teaching Sameer Moscoso MD Health Care Aide (Electronically Signed)
[2019-05-16] MEDS ORDERED: Midazolam* 1 MG/ML 2 ML VIAL (2 MG) IV SLOW PU ONE (15:34)
[2019-05-16] MEDS ORDERED: HYDROmorphone INJ1* 1 MG/ML SYRINGE IV SLOW PU ONE (15:34)
--- NOTE | 2019-05-16 18:20 | OP ---
Operative Report - Blank - Operative Report Date of Operation: 05/16/19 Note: Introducer and [place] Niraj Procedure Note Indication: congestive heart failure, acute hypoxic respiratory failure Diagnosis: acute hypoxic respiratory failure, acute pulmonary edema, acute decompensated diastolic heart failure Performed by: Dr Sameer Moscoso Consent: Informed ; placed in bedside chart Risks of procedure were explained if possible, all risks of pain/discomfort, bleeding, infection, PTX, Hemotx, need for chest tube, air/wire embolism, vessel injury, , and failed procedure disclosed and understanding verbalized [place] Protocol: Time-out was performed and the correct patient and site were verified Central Line/Introducer placement- - Labs/history was reviewed prior to procedure - Full sterile precautions with chlorhexidine/full drapes/gowns/gloves utilized - Right Internal Jugular vein visualized with ultrasound - Vessel accessed under ultrasound guidance with return of nonpulsatile blood. A guidewire was passed into vessel and confirmed in vessel with ultrasound. 1 attempt was made to access vessel. Vessel was dilated and cathetor was passed over wire into vessel. All ports demonstrated good blood return and flushed. -[place] Niraj cathetor ports all flushed. Balloon inflated and tested. [place] catheter inserted upto 20cm and balloon inflated, catheter advanced under telemetry and pressure waveform monitoring until it passed from RA to RV to PA, with subsequent PCW position obtained. Pressures recorded and balloon deflated at PCW position with subsequent pullback after deflation. Final waveform demonstrates PA waveform. Catheter was locked to introducer sheath and protective sleeve advanced and locked. -[place] Niraj locked at 50 cm monico. Hemodynamics - RA 20 RV 70/20 PA 70/37, mean ~50 PCW 22 CO/CI via Lexii - pending CO/CI via thermodilution - pending Adequate hemostasis was achieved. EBL 5-10cc No immediate complications noted, patient tolerated procedure well. Post Procedure CXR: ETT above julia, pulmonary congestion++ bilaterally; [place]+ in PA; no PTX Sameer Moscoso MD Rivet Machine Operator (Electronically Signed)
[2019-05-16 18:39] LABS: Urine Appearance Turbid; Urine Bacteria Absent (Absent); Urine Bilirubin Negative (Negative); Urine Blood 1+ (Negative); Urine Color Yellow; Urine Glucose Negative (Negative); Urine Ketones Trace (Negative); Urine Nitrite Negative (Negative); Urine Protein Negative (Negative); Urine Red Blood Cell Absent (Absent); Urine Specific Gravity 1.023 (1.010-1.030); Urine Urobilinogen Negative (Negative); Urine White Blood Cell Absent (Absent)
[2019-05-16 18:43] LABS: BUN/Creatinine Ratio 18.2 (8-20); Calcium 8.3 mg/dL (8.6-10.3); EGFR African American 162.6 (>60); EGFR Non-African American 134.4 (>60); Magnesium 1.9 mg/dL (1.9-2.7); Potassium 4.2 mmol/L (3.5-5.0)
[2019-05-16] MEDS: Enoxaparin(*) 40 MG/0.4 ML SYR SUBCUT SCH (20:28)
[2019-05-16] MEDS: Doxazosin TAB* 2 MG PO SCH (20:30)
[2019-05-16] MEDS: LOXAPINE 5 MG PO SCH (20:30)
[2019-05-17] MEDS: Propofol* 100 ML IV SCH ×17 (00:24→21:15)
[2019-05-17] MEDS ORDERED: Furosemide IV* 10 MG/ML 2 ML VIAL (20 MG) IV ONE (01:30)
[2019-05-17] MEDS: Chlorhexidine MOUTHWASH 0.12%* 15 ML UDC TOPICAL SCH ×6 (01:31→20:19)
[2019-05-17 05:24] LABS: Hematocrit 44 % (42-52); Hemoglobin 14.2 g/dL (14.0-18.0); Mean Corpuscular HGB Conc 32 g/dL (31-36); Mean Corpuscular Hemoglobin 27 pg (27-31); Mean Corpuscular Volume 83 fL (80-94); Mean Platelet Volume 7.3 fL (7.4-10.4); Platelet Count 160 10^3/uL (150-450); Red Blood Count 5.38 10^6 /uL (4.18-5.48); Red Cell Distribution Width 19 % (10-15); White Blood Count 7.6 10^3/uL (3.5-10.8)
[2019-05-17 05:52] LABS: BUN/Creatinine Ratio 18.5 (8-20); EGFR African American 165.5 (>60); EGFR Non-African American 136.8 (>60); Magnesium 1.8 mg/dL (1.9-2.7); Potassium 4.3 mmol/L (3.5-5.0)
[2019-05-17] MEDS ORDERED: acetaZOLAMIDE VIAL* 500 MG in NS 0.9% 50 ML* 50 ML IVPB ONE (08:00)
[2019-05-17] MEDS: Escitalopram * 10 MG TAB PO SCH (09:03)
[2019-05-17] MEDS: Famotidine IV* 10 MG/ML 2 ML (20 mg) IV SLOW PU SCH ×2 (09:03→20:19)
[2019-05-17] MEDS: OLANzapine TAB* 10 MG PO SCH (09:03)
[2019-05-17] MEDS: Magnesium Sulfate 2 GM IV* 2 GM/50 ML BAG IVPB ONE ×2 (11:47→12:00)
[2019-05-17] MEDS ORDERED: Midazolam* 1 MG/ML 2 ML VIAL (2 MG) IV SLOW PU ONE (13:05)
[2019-05-17] MEDS ORDERED: Furosemide IV* 10 MG/ML VIAL (40 MG) IV ONE (13:40)
--- NOTE | 2019-05-17 13:51 | PN ---
Progress Note - Progress Note Date of Service: 05/17/19 Note: Progress Note -- Critical Care 24 hour events -remains intubated; off levophed; on propofol -afebrile, tmax 99 -Shelbina placed yesterday -great urine output past 24 hours -no sig events overnight otherwise -Limited ROS due to intubated state -manual BMV at beside due to desaturation during turning to 80s, slowl increase in o2 sats Tele: NSR Vitals: Vital Signs Temp 99.1 F 05/17/19 11:00 Pulse 82 05/17/19 11:00 Resp 20 05/17/19 11:00 BP 106/45 05/17/19 11:00 Pulse Ox 93 05/17/19 11:00 Intake & Output 05/16/19 05/17/19 05/17/19 18:59 06:59 18:59 Intake Total 938 1349.1 Output Total 3780 2600 750 Balance -2842 -1250.9 -750 Weight 273.4 kg Intake: IV Fluids 206.1 NS (0.9%) 206.1 IVPB 99 NS (0.9%) 99 Medicated IV 839 1143 GEN - Magnesium 61 Propofol 778 1143 Output: G Tube 200 Roberts 3780 2400 750 O2/Vent: PCV 30/10, increased to peep 15, Rate 20, 100% fio2 Infusions: propofol , levophed off Current Medications: Acetaminophen (Tylenol Tab*) 975 mg PO Q8H PRN PRN Reason: Pain - Mild to Moderate Al Hydrox/Mg Hydrox/Simethicone (Maalox Plus*) 30 ml PO Q6H PRN PRN Reason: INDIGESTION Albuterol (Ventolin 2.5 Mg/3 Ml Neb.Izabella*) 2.5 mg INH RT.H2DS-MIVNO AWAKE PRN PRN Reason: sob/wheezing Alprazolam (Xanax Tab*) 0.5 mg PO TID PRN PRN Reason: ANXIETY Chlorhexidine Gluconate (Peridex Mouth Wash 0.12%*) 15 ml TOPICAL Q4HR [facility] Last Admin: 05/17/19 10:52 Dose: 15 ml Doxazosin Mesylate (Cardura Tab*) 6 mg PO BEDTIME JULIA Last Admin: 05/16/19 20:30 Dose: 6 mg Enoxaparin Sodium (Lovenox(*)) 40 mg SUBCUT Q24H [facility] Last Admin: 05/16/19 20:28 Dose: 40 mg Escitalopram Oxalate (Lexapro *) 10 mg PO DAILY [facility] Last Admin: 05/17/19 09:03 Dose: 10 mg Famotidine (Pepcid Iv*) 20 mg IV SLOW PU BID [facility] Last Admin: 05/17/19 09:03 Dose: 20 mg Furosemide (Lasix Iv*) 40 mg IV BID [facility] Heparin Sodium (Porcine) (Heparin Flush Picc/Ml/Cvc(*)) 1 - 3 ml FLUSH 0600, 1800 [facility]; Protocol Last Admin: 05/17/19 05:07 Dose: 1 ml Propofol (Diprivan*) 100 mls @ 0 mls/hr IV .PER PROTOCOL JULIA; Protocol Last Admin: 05/17/19 11:46 Dose: 106 mls/hr Norepinephrine Bitartrate (Levophed 16 Mcg/Ml Premix*) 4,000 mcg in 250 mls @ 18.75 mls/hr IV .INITIAL RATE [facility]; Protocol Last Admin: 05/15/19 12:11 Dose: 18.75 mls/hr Dexmedetomidine HCl 1,000 mcg/ (Sodium Chloride) 250 mls @ 0 mls/hr IV .( Initial rate) JULIA; Protocol Magnesium Hydroxide (Milk Of Magnellen Liq*) 30 ml PO Q4H PRN PRN Reason: CONSTIPATION Miscellaneous (Ativan Pyxis Black) 1 ea N/A .ATIVAN IV BLACK PRN PRN Reason: PYXIS BLACK Pto: *Loxapine 5mg (Capsule*) 1 dose PO BEDTIME JULIA; Protocol Last Admin: 05/16/19 20:30 Dose: 1 dose Olanzapine (Zyprexa Tab*) 10 mg PO DAILY [facility] Last Admin: 05/17/19 09:03 Dose: 10 mg Physical Exam: Constitutional: intubated, sedated, awakens and follows commands on lower sedation , anxious, no distress, no diaphoresis, obese+ Head: normocephalic, atraumatic Eyes: no pallor, no icterus ENT: moist mucous membranes Neck: soft, supple, no jvd CVS: normal rate, regular, no murmur Chest/Resp: bilateral air entry, no rhales, no wheeze, no rhonchi, no acc muscle use Abdomen/GI: soft, nontender, nondistended, BS+ Ext/Msk: warm, pulses+, + edema Skin: intact, warm Neuro: intubated, sedated, reactive pupils+, moving all ext on lower sedation Psych: anxious on lower sedation, difficult to determine Labs: Laboratory Results - last 24 hr 05/16/19 05/16/19 05/16/19 18:15 18:15 18:15 WBC RBC Hgb Hct MCV MCH MCHC RDW Plt Count MPV Patient Temperature ABG pH ABG pH (Temp Correct) ABG pCO2 ABG pCO2 (Temp Corrct ABG pO2 ABG pO2 (Temp Correct ABG HCO3 ABG O2 Saturation ABG Base Excess VBG pH 7.40 VBG pCO2 73 H VBG pO2 53.0 H VBG HCO3 37.4 H VBG O2 Saturation 85.8 H VBG Base Excess 16.5 H Respiration Rate O2 Delivery Device Ventilator Type Vent Mode FiO2 Inspiratory Time PEEP Pressure Support Pressure Control EPAP IPAP BiPAP Sodium 136 Potassium 4.2 Chloride 91 L Carbon Dioxide 44 H* Anion Gap 1 L BUN 12 Creatinine 0.66 L Est GFR ( Amer) 162.6 Est GFR (Non-Af Amer) 134.4 BUN/Creatinine Ratio 18.2 Glucose 63 L Calcium 8.3 L Phosphorus Magnesium 1.9 Urine Color Yellow Urine Appearance Turbid Urine pH 5.0 Ur Specific [place] 1.023 Urine Protein Negative Urine Ketones Trace A Urine Blood 1+ A Urine Nitrate Negative Urine Bilirubin Negative Urine Urobilinogen Negative Ur Leukocyte Esterase Negative Urine WBC (Auto) Absent Urine RBC (Auto) Absent Urine Bacteria Absent Urine Glucose Negative Urine Ascorbic Acid * A 05/17/19 05/17/19 05/17/19 05:13 05:13 05:13 WBC 7.6 RBC 5.38 Hgb 14.2 Hct 44 MCV 83 MCH 27 MCHC 32 RDW 19 H Plt Count 160 MPV 7.3 L Patient Temperature ABG pH ABG pH (Temp Correct) ABG pCO2 ABG pCO2 (Temp Corrct ABG pO2 ABG pO2 (Temp Correct ABG HCO3 ABG O2 Saturation ABG Base Excess VBG pH VBG pCO2 VBG pO2 VBG HCO3 VBG O2 Saturation VBG Base Excess Respiration Rate O2 Delivery Device Ventilator Type Vent Mode FiO2 Inspiratory Time PEEP Pressure Support Pressure Control EPAP IPAP BiPAP Sodium 135 Potassium 4.3 Chloride 90 L Carbon Dioxide 44 H* Anion Gap 1 L BUN 12 Creatinine 0.65 L Est GFR ( Amer) 165.5 Est GFR (Non-Af Amer) 136.8 BUN/Creatinine Ratio 18.5 Glucose 67 L Calcium 8.0 L Phosphorus 4.7 Magnesium 1.8 L Urine Color Urine Appearance Urine pH Ur Specific [place] Urine Protein Urine Ketones Urine Blood Urine Nitrate Urine Bilirubin Urine Urobilinogen Ur Leukocyte Esterase Urine WBC (Auto) Urine RBC (Auto) Urine Bacteria Urine Glucose Urine Ascorbic Acid 05/17/19 11:50 WBC RBC Hgb Hct MCV MCH MCHC RDW Plt Count MPV Patient Temperature Not Reportable ABG pH 7.37 ABG pH (Temp Correct) Not Reportable ABG pCO2 73 H* ABG pCO2 (Temp Corrct Not Reportable ABG pO2 70 L ABG pO2 (Temp Correct Not Reportable ABG HCO3 35.3 H ABG O2 Saturation 95.6 ABG Base Excess 13.4 H VBG pH VBG pCO2 VBG pO2 VBG HCO3 VBG O2 Saturation VBG Base Excess Respiration Rate 20 O2 Delivery Device [facility] vent Ventilator Type Not Reportable Vent Mode pcv FiO2 100 Inspiratory Time .75 PEEP 8 Pressure Support Not Reportable Pressure Control 30 EPAP Not Reportable IPAP Not Reportable BiPAP Not Reportable Sodium Potassium Chloride Carbon Dioxide Anion Gap BUN Creatinine Est GFR ( Amer) Est GFR (Non-Af Amer) BUN/Creatinine Ratio Glucose Calcium Phosphorus Magnesium Urine Color Urine Appearance Urine pH Ur Specific [place] Urine Protein Urine Ketones Urine Blood Urine Nitrate Urine Bilirubin Urine Urobilinogen Ur Leukocyte Esterase Urine WBC (Auto) Urine RBC (Auto) Urine Bacteria Urine Glucose Urine Ascorbic Acid Imaging: CXR 05/14 - cardiomegaly, pulm congestion+ cxr 05/15 - ett above julia, cardiomegaly+, pulm congestion+ cxr 05/16 - obese, congestion++, cardiomegaly DUplex 05/15 - no DVT cxr 05/17 - pulm edema++ still, unchanged Assessment: 39y M w/pmhx of HTN, obesity, Sleep Apnea, asthma in childhood, Anxiety disorder, depression, Peripheral venous insuff, lymphedema; comes to ER 05/14 for complaints of SOB for a few days to weeks. Mother also came with him and states that he has been increasingly been gaining weight, more so past month. no fever/chills. no diarrhea. has been on water pill for fluid buildup also. He stated he could not tolerate home CPAP machine and has been having lower oxygen levels at home for weeks also. In ER he was hypoxic to 70s, started on NC. CXR 05/14 demonstrated pulm congestion. He was admitted for volume overload, respiratory failure, with ABG demonstrating hypercapnea and A- a gradient. Patient overnight became more lethargic, increasing O2 requirements , eventually requiring intubation. -Acute hypoxic and hypercapneic respiratory failure, intubated 05/15 -Acute Pulmonary Congestion -r/o DVT -Hyperkalemia -Hyponatremia -Shock, 10/06 to sedation/vasodilatation -acute decompensated Diastolic heart failure -Severe Pulm HTN -Obesity -Anxiety disorder Sleep Apnea Lymphedema Plan: Neuro- -on propofol sedation; start precedex as bridge -Ativan PRN -cont lexapro, olanzapine , cont xanax prn once extubated -Delirium prec; avoid BDZ CVS- -shockimproved; off pressors -making urine; cont diamox and lasix; start lasix 5mg/hr infusion -good urine output with lasix; 6+L out 24 hours -CVP 15-20; PA pressures 60s; check CO today, yesterday was CI 5 -keep diuresis ongoing to unload; then re-eval pulm HTN and need for pulm vasodilator therapy; discussed with family, we discussed option for transfer to higher level for pulm htn management if not improving either; currently hypoxia is profound and any initiation would worsen hypoxia. -hold antihypertensives -TTE to eval for effusion/LV function -Titrate Pressors to Maintain MAP>65 Resp- -Intubated; on PCV mode now; on 100%, 30/+15, rate 20 -cxr 05/17 pulm edema -cont IV diuretics -no suspected infection, no secretions; no abx indicated currently -component of FRANCK uncontrolled, obesity hypoventilation; now with severe Pulm HTN, Cor Pulmonale and LV diastolic heart failure -no DVT on LE duplex -Wean Fio2 to keep sat>92% -Bronchodilators PRN, Aspiration prec, Pulmonary Toilet -VAP bundle ID- afebrile. wbc 11-8-7. nontoxic. no clear focal infiltrate, congestion+. low suspicion for infection. monitor off abx. GI- -NPO; NGT Promote feeds goal 40cc/hr -GI prophylaxis - h2b Renal- -Cr okay; good uop with lasix -diamox 500mg iv x1 now -lasix 40mg IV x1, start lasix infusion 5mg/hr -metabolic alkalosis from ongoing diuresis as well as underling chronic hypercapnea? -Iv MgSulfate 2gm x1 now -strict I/O, replete to keep K>4, Mg>2 -roberts as indicated Heme- hg stable, plt stable -DVT porph with chemical and SCDs -LE duplex neg for DVTs Endo- Maintain BG<200, insulin protocol as needed; noted hba1c 6.2, likely pre- diabetic range now. -tsh 9, normal free t3/t4 level. not very convincing if hypothyroid, which may be contributing to weight gain also. will have endo eval once stabilized Musculsk- pressure ulcer prophylaxis. Bedrest. Wounds- none Nutrition- promote TF DVT prophylaxis: SCD, enoxaparin sq GI prophylaxis: h2b Central Line: PICC Right arm 05/15; RIJ Intro/Shelbina 05/16 Arterial Line: no Roberts Cathetor: yes Disposition: Patient requires Critical Care/ICU for acute respiratory failure req intubation, pulm htn, CHF exaccerbation, volume overload Patient Clinical Status: guarded, critical Code Status: full code Total Critical Care time is 45 minutes, excluding procedures/teaching Sameer Moscoso MD Manager Of Organizational Development (Electronically Signed)
[2019-05-17] MEDS ORDERED: Furosemide IV* 100 MG in NS 0.9% 100 ML* 90 ML IV SCH (14:00)
[2019-05-17] MEDS: Dexmedetomidine* 1,000 MCG in NS 0.9% 250 ML* 240 ML IV SCH ×2 (14:27→21:15)
[2019-05-17] MEDS: Furosemide IV* 100 MG in NS 0.9% 100 ML* 90 ML IV SCH (18:00)
[2019-05-17 18:15] LABS: BUN/Creatinine Ratio 15.2 (8-20); EGFR African American 132.1 (>60); EGFR Non-African American 109.2 (>60); Potassium 4.2 mmol/L (3.5-5.0)
[2019-05-17] MEDS ORDERED: Furosemide IV* 10 MG/ML VIAL (40 MG) IV SCH (20:00)
[2019-05-17] MEDS: Enoxaparin(*) 40 MG/0.4 ML SYR SUBCUT SCH (20:19)
[2019-05-17] MEDS: LOXAPINE 5 MG PO SCH (20:19)
[2019-05-17] MEDS: Doxazosin TAB* 2 MG PO SCH (20:20)
[2019-05-17] MEDS ORDERED: Metolazone TAB* 5 MG PO ONE (22:57)
[2019-05-17] MEDS ORDERED: Enoxaparin(*) 40 MG/0.4 ML SYR SUBCUT ONE (23:36)
[2019-05-18] MEDS: Furosemide IV* 100 MG in NS 0.9% 100 ML* 90 ML IV SCH ×5 (01:06→18:53)
[2019-05-18] MEDS: Chlorhexidine MOUTHWASH 0.12%* 15 ML UDC TOPICAL SCH ×6 (01:07→21:14)
[2019-05-18] MEDS: Dexmedetomidine* 1,000 MCG in NS 0.9% 250 ML* 240 ML IV SCH ×4 (03:45→20:00)
[2019-05-18] MEDS: Propofol* 100 ML IV SCH ×11 (04:41→23:08)
[2019-05-18] MEDS ORDERED: acetaZOLAMIDE VIAL* 500 MG in NS 0.9% 50 ML* 50 ML IVPB ONE (06:00)
[2019-05-18 06:10] LABS: Hematocrit 50 % (42-52); Hemoglobin 16.3 g/dL (14.0-18.0); Mean Corpuscular HGB Conc 33 g/dL (31-36); Mean Corpuscular Hemoglobin 27 pg (27-31); Mean Corpuscular Volume 83 fL (80-94); Mean Platelet Volume 7.9 fL (7.4-10.4); Platelet Count 150 10^3/uL (150-450); Red Blood Count 5.98 10^6 /uL (4.18-5.48); Red Cell Distribution Width 19 % (10-15); White Blood Count 8.3 10^3/uL (3.5-10.8)
[2019-05-18 06:29] LABS: BUN/Creatinine Ratio 16.3 (8-20); Calcium 8.3 mg/dL (8.6-10.3); EGFR African American 119.8 (>60); Phosphorus 4.4 mg/dL (2.5-5.0); Potassium 3.7 mmol/L (3.5-5.0)
[2019-05-18] MEDS: Escitalopram * 10 MG TAB PO SCH (09:28)
[2019-05-18] MEDS: OLANzapine TAB* 10 MG PO SCH (09:28)
[2019-05-18] MEDS: Famotidine IV* 10 MG/ML 2 ML (20 mg) IV SLOW PU SCH ×2 (09:28→21:14)
[2019-05-18] MEDS ORDERED: Magnesium Sulfate 2 GM IV* 2 GM/50 ML BAG IVPB ONE (09:39)
[2019-05-18] MEDS: KCL 20 MEQ/100 ML IVPREMIX* 20 MEQ/100 ML BAG IV SCH ×4 (10:20→22:31)
[2019-05-18] MEDS ORDERED: HYDROmorphone INJ* 0.5 MG/0.5 ML SYRINGE ONE (11:09)
[2019-05-18] MEDS ORDERED: KCL 20 MEQ/100 ML IVPREMIX* 20 MEQ/100 ML BAG IV ONE (12:07)
--- NOTE | 2019-05-18 12:30 | PN ---
Progress Note - Progress Note Date of Service: 05/18/19 Note: Progress Note -- Critical Care 24 hour events -remains intubated; on propofol and precedex -afebrile, tmax 99 -great urine output on lasix infusion; s/p metolazone 5mg po x1 and diamox -sats very labile; on peep 20, fio2 100%; desaturates on minimal movement -Limited ROS due to intubated state Tele: NSR Vitals: Vital Signs Temp 99.9 F 05/18/19 12:00 Pulse 63 05/18/19 12:00 Resp 20 05/18/19 12:03 BP 120/71 05/18/19 12:00 Pulse Ox 91 05/18/19 12:00 Intake & Output 05/17/19 05/18/19 05/18/19 18:59 06:59 18:59 Intake Total 1481 2585 50 Output Total 1950 3560 3850 Balance -877 -302 -1400 Intake: IV Fluids 157 224 NS (0.9%) 69 NS wtih meds 88 224 IVPB 87 NS (0.9%) 87 Medicated IV 894 1691 CC - Dexmedetomidine/ 590 Precedex GEN - Furosemide/Lasix 135 Propofol 894 966 Tube Feeding 193 545 Tube Feeding Flush Amount 150 125 50 Output: Roberts 1950 3560 3850 Other: Date of Last Bowel 05/17/19 Movement # Bowel Movements 1 Estimated Stool Amount Small O2/Vent: PCV 30/+20, Rate 20, 100% fio2 Infusions: propofol , lasix infusion 10mg/hr Current Medications: Acetaminophen (Tylenol Tab*) 975 mg PO Q8H PRN PRN Reason: Pain - Mild to Moderate Al Hydrox/Mg Hydrox/Simethicone (Maalox Plus*) 30 ml PO Q6H PRN PRN Reason: INDIGESTION Albuterol (Ventolin 2.5 Mg/3 Ml Neb.Izabella*) 2.5 mg INH [id number] AWAKE PRN PRN Reason: sob/wheezing Alprazolam (Xanax Tab*) 0.5 mg PO TID PRN PRN Reason: ANXIETY Chlorhexidine Gluconate (Peridex Mouth Wash 0.12%*) 15 ml TOPICAL Q4HR JULIA Last Admin: 05/18/19 10:48 Dose: 15 ml Doxazosin Mesylate (Cardura Tab*) 6 mg PO BEDTIME JULIA Last Admin: 05/17/19 20:20 Dose: 6 mg Enoxaparin Sodium (Lovenox(*)) 100 mg SUBCUT Q24H REPLACED BY [facility] Escitalopram Oxalate (Lexapro *) 10 mg PO DAILY REPLACED BY [facility] Last Admin: 05/18/19 09:28 Dose: 10 mg Famotidine (Pepcid Iv*) 20 mg IV SLOW PU BID JULIA Last Admin: 05/18/19 09:28 Dose: 20 mg Heparin Sodium (Porcine) (Heparin Flush Picc/Ml/Cvc(*)) 1 - 3 ml FLUSH 0600, 1800 REPLACED BY [facility]; Protocol Last Admin: 05/18/19 06:42 Dose: Not Given Propofol (Diprivan*) 100 mls @ 0 mls/hr IV .PER PROTOCOL JULIA; Protocol Last Admin: 05/18/19 11:26 Dose: 60 mls/hr Norepinephrine Bitartrate (Levophed 16 Mcg/Ml Premix*) 4,000 mcg in 250 mls @ 18.75 mls/hr IV .INITIAL RATE JULIA; Protocol Last Admin: 05/15/19 12:11 Dose: 18.75 mls/hr Dexmedetomidine HCl 1,000 mcg/ (Sodium Chloride) 250 mls @ 0 mls/hr IV Q6H REPLACED BY [facility] ; Protocol Last Admin: 05/18/19 09:26 Dose: 48 mls/hr Furosemide 100 mg/ Sodium (Chloride) 100 mls @ 10 mls/hr IV Q10H REPLACED BY [facility]; Protocol Last Admin: 05/18/19 11:10 Dose: 10 mls/hr Potassium Chloride (Potassium Chloride 20 Meq/100 Ml Ivpremix*) 20 meq in 100 mls @ 50 mls/hr IV Q2H REPLACED BY [facility] Stop: 05/18/19 13:59 Last Admin: 05/18/19 11:25 Dose: 100 mls/hr Potassium Chloride (Potassium Chloride 20 Meq/100 Ml Ivpremix*) 20 meq in 100 mls @ 50 mls/hr IV ONCE ONE Stop: 05/18/19 14:06 Magnesium Hydroxide (Milk Of Magnesia Liq*) 30 ml PO Q4H PRN PRN Reason: CONSTIPATION Miscellaneous (Ativan Pyxis Black) 1 ea N/A .ATIVAN IV BLACK PRN PRN Reason: PYXIS BLACK Pto: *Loxapine 5mg (Capsule*) 1 dose PO BEDTIME REPLACED BY [facility]; Protocol Last Admin: 05/17/19 20:19 Dose: 1 dose Olanzapine (Zyprexa Tab*) 10 mg PO DAILY REPLACED BY [facility] Last Admin: 05/18/19 09:28 Dose: 10 mg Physical Exam: Constitutional: intubated, sedated, awakens and follows commands on lower sedation , anxious, no distress, no diaphoresis, obese+ Head: normocephalic, atraumatic Eyes: no pallor, no icterus ENT: moist mucous membranes Neck: soft, supple, no jvd CVS: normal rate, regular, no murmur Chest/Resp: bilateral air entry, no rhales, no wheeze, no rhonchi, no acc muscle use Abdomen/GI: soft, nontender, nondistended, BS+ Ext/Msk: warm, pulses+, + edema Skin: intact, warm Neuro: intubated, sedated, reactive pupils+, moving all ext on lower sedation Psych: anxious on lower sedation, difficult to determine Labs: Laboratory Results - last 24 hr 05/17/19 05/18/19 05/18/19 17:40 05:45 05:45 WBC 8.3 RBC 5.98 H Hgb 16.3 Hct 50 MCV 83 MCH 27 MCHC 33 RDW 19 H Plt Count 150 MPV 7.9 Sodium 135 135 Potassium 4.2 3.7 Chloride 91 L 91 L Carbon Dioxide 37 H 38 H Anion Gap 7 6 BUN 12 14 Creatinine 0.79 0.86 Est GFR ( Amer) 132.1 119.8 Est GFR (Non-Af Amer) 109.2 99.0 BUN/Creatinine Ratio 15.2 16.3 Glucose 97 116 H Calcium 8.0 L 8.3 L Phosphorus 4.4 Magnesium 2.0 2.0 Imaging: CXR 05/14 - cardiomegaly, pulm congestion+ cxr 05/15 - ett above julia, cardiomegaly+, pulm congestion+ cxr 05/16 - obese, congestion++, cardiomegaly DUplex 05/15 - no DVT cxr 05/17 - pulm edema++ still, unchanged cxr 05/18 - ett above julia; bilateral mild congestion, cardiomegaly+, prominent pulm arteries Assessment: 39y M w/pmhx of HTN, obesity, Sleep Apnea, asthma in childhood, Anxiety disorder, depression, Peripheral venous insuff, lymphedema; comes to ER 05/14 for complaints of SOB for a few days to weeks. Mother also came with him and states that he has been increasingly been gaining weight, more so past month. no fever/chills. no diarrhea. has been on water pill for fluid buildup also. He stated he could not tolerate home CPAP machine and has been having lower oxygen levels at home for weeks also. In ER he was hypoxic to 70s, started on NC. CXR 05/14 demonstrated pulm congestion. He was admitted for volume overload, respiratory failure, with ABG demonstrating hypercapnea and A- a gradient. Patient overnight became more lethargic, increasing O2 requirements , eventually requiring intubation. -Acute hypoxic and hypercapneic respiratory failure, intubated 05/15 -Acute Pulmonary Congestion -r/o DVT -Hyperkalemia -Hyponatremia -Shock, / to sedation/vasodilatation -acute decompensated Diastolic heart failure -Severe Pulm HTN -Obesity -Anxiety disorder Sleep Apnea Lymphedema Plan: Neuro- -on propofol and precedex for sedation; minimize propofol -Ativan PRN -cont lexapro, olanzapine , cont xanax prn once extubated -Delirium prec; avoid BDZ CVS- -shock improved; off pressors -making large amounts of urine and remains stable with good CO/CI ; CVP 15s, PCW 15 -on lasix 10mg/hr, s/p diamox and metolzaone overnight; so far ~500cc/hr -check Chem q6h, replete K/Mg as needed -may back off lasix infusion later today -with diuresis, congestion improved, will slow down and cont -hold antihypertensives -TTE to eval for effusion/LV function - no gross LV dysfunction or RV dysfunction -may consider CARLOS -Maintain MAP>65 Resp- -Intubated; on PCV mode now; on 100%, 30/+20, rate 20 -very labile sats; minimize movement -CXR 05/18 without gross lung findings, mild congestion, no effusion/ptx -good urine otuput but no change in o2 sats -DVT negative on study -not able to get CTA or v/q; pre-emptively start IV heparin for AC because he is not improving o2 sats yet; maybe a CARLOS may clearly state no RV dysfunction -pulm consult to be obtained for Pulm HTN eval also -component of FRANCK uncontrolled, obesity hypoventilation; now with severe Pulm HTN, Cor Pulmonale and LV diastolic heart failure -Wean Fio2 to keep sat>92% -Bronchodilators PRN, Aspiration prec, Pulmonary Toilet -VAP bundle ID- afebrile, tmax 99. wbc 11-8-7-8. nontoxic. no clear focal infiltrate, congestion+. low suspicion for infection. monitor off abx. GI- -NGT Promote feeds goal 40cc/hr -GI prophylaxis - h2b Renal- -Cr okay; good uop with lasix infusion -kcl 60meq iv -check BMP at 4pm and Mg level -will likely dec lasix infusion to 5mg/hr later today -diamox as needed -metabolic alkalosis from ongoing diuresis as well as underling chronic hypercapnea? -strict I/O, replete to keep K>4, Mg>2 -roberts as indicated Heme- hg stable, plt stable -DVT porph with chemical and SCDs -LE duplex neg for DVTs Endo- Maintain BG<200, insulin protocol as needed; noted hba1c 6.2, likely pre- diabetic range now. Musculsk- pressure ulcer prophylaxis. Bedrest. Wounds- none Nutrition- promote TF DVT prophylaxis: SCD, enoxaparin sq GI prophylaxis: h2b Central Line: PICC Right arm 05/15; RIJ Intro/Central 05/16 Arterial Line: no Roberts Cathetor: yes Disposition: Patient requires Critical Care/ICU for acute respiratory failure req intubation, pulm htn, CHF exaccerbation, volume overload Patient Clinical Status: guarded, critical Code Status: full code Total Critical Care time is 45 minutes, excluding procedures/teaching Sameer Moscoso MD Home Care Consultant (Electronically Signed)
[2019-05-18 15:13] LABS: Activated Partial Thrombo Time 29.8 seconds (26.0-38.0); INR 1.23 (0.82-1.09)
[2019-05-18 15:21] LABS: BUN/Creatinine Ratio 15.9 (8-20); Calcium 8.3 mg/dL (8.6-10.3); EGFR African American 116.7 (>60); EGFR Non-African American 96.4 (>60); Magnesium 2.3 mg/dL (1.9-2.7); Potassium 3.8 mmol/L (3.5-5.0)
--- NOTE | 2019-05-18 17:09 | PN ---
Progress Note - Progress Note Date of Service: 05/18/19 Note: Arterial Line Procedure Note Indication: frequent arterial blood gases , invasive hemodynamic monitoring Diagnosis: acute hypoxic respiratory failure, acute decompensated diastolic heart failure Performed by: Sameer Moscoso MD Consent: Informed ; placed in bedside chart Risk/Benefits of procedure explained. [place] Protocol: Time-out was performed and the correct patient and site were verified - Prior labs/history was reviewed prior to procedure - Full sterile precautions with chlorhexidine/full drapes/gowns/gloves utilized - Right radial artery visualized with US - Vessel accessed with return of pulsatile blood. One attempt was made to access vessel. A cathetor was threaded over wire into vessel. Good arterial waveform was observed on monitor. - Arterial Catheter was sutured to site; dressing applied to site. EBL <5 cc No immediate complications noted, patient tolerated procedure well. Sameer Moscoso MD [employer] (Electronically Signed)
--- NOTE | 2019-05-18 18:21 | PN ---
Progress Note - Progress Note Date of Service: 05/18/19 Note: Critical Care Patient on PCV rate 20, 30/+22, fio2 100% Sats were 90% slowly sats to 94% now. ABG reviewed 7.48; changed settings to rate 16, fio2 100% still. Arterial line was placed in right radial. Bp stable, no pressors still required making good urine with lasix infusion. will d/c lasix and switch back to Lasix IV pushes. Currently PCW 20, CVP 15-20, PA pressure 53/25 COmpared to initial [place] pressures, he has shown improvement in systolic and mean pulmonary pressures (initially 70/37 with means in 50s and PCW 20). I disucssed with about transfer potential, risk and benefit. I discussed the patient with Dr Cruz at [facility]; patient has show some improvement with ongoing diuresis but may need even more diuresis. He though has not shown me dramatic resp improvement. Oxygen requirements remain high with high PEEP requirements despite CXR showing less congestion. No evidence of pneumonia or ptx/effusions. There may be component of atlecetasis given his body habitus. There is a small chance of need for ECMO if he continues to worsen, and we discussed that. At this time i have optimized him to the best of my ability with ongoing diuresis, resp support. I feel he will require vent support for some time and intensive recruitement with possible need for trach if not improving. I do suspect that with the resp support he needs that VV ECMO is a possibility, though not very high, it is there. CT imaging at [facility] may be able to accomodate and obtain good images for him to r/o a PE. I have started empiric IV heparin until it is absolutely ruled out, though my suspicion is not high given a normal RV size/function on TTE. I have performed a bedside bubble study also now and no evidence of Right to left shunting of bubbles was evident on the images i could obtain. Based on his status and no improvment in past 24-48 hours, but acutally increased peep requirements and support, I suggest transfer to higher level of care, possible ECMO and even Pulm HTN management. Transfer will be initiated. Sameer Moscoso MD [employer]
[2019-05-18] MEDS ORDERED: Furosemide IV* 10 MG/ML VIAL (40 MG) IV SCH (20:00)
[2019-05-18] MEDS: Heparin DRIP 25,000 UNITS(*) 25,000 UNITS/500 ML BAG IV SCH (20:18)
[2019-05-18] MEDS ORDERED: Enoxaparin(*) 100 MG/ML SYR SUBCUT SCH (21:00)
[2019-05-18] MEDS: LOXAPINE 5 MG PO SCH (21:14)
[2019-05-18] MEDS: Doxazosin TAB* 2 MG PO SCH (21:14)
[2019-05-19] MEDS: Propofol* 100 ML IV SCH ×8 (00:47→17:18)
[2019-05-19 01:28] LABS: Activated Partial Thrombo Time 42.9 seconds (26.0-38.0)
[2019-05-19] MEDS: Chlorhexidine MOUTHWASH 0.12%* 15 ML UDC TOPICAL SCH ×5 (01:30→18:04)
[2019-05-19 01:36] LABS: BUN/Creatinine Ratio 17.9 (8-20); Calcium 8.3 mg/dL (8.6-10.3); EGFR African American 123.1 (>60); EGFR Non-African American 101.7 (>60); Magnesium 2.2 mg/dL (1.9-2.7); Phosphorus 4.6 mg/dL (2.5-5.0); Potassium 3.7 mmol/L (3.5-5.0)
[2019-05-19] MEDS: Dexmedetomidine* 1,000 MCG in NS 0.9% 250 ML* 240 ML IV SCH ×5 (02:13→19:35)
[2019-05-19] MEDS: KCL 20 MEQ/100 ML IVPREMIX* 20 MEQ/100 ML BAG IV SCH ×5 (03:08→13:24)
[2019-05-19] MEDS: Furosemide IV* 100 MG in NS 0.9% 100 ML* 90 ML IV SCH ×2 (05:16→13:28)
[2019-05-19] MEDS: Heparin DRIP 25,000 UNITS(*) 25,000 UNITS/500 ML BAG IV SCH ×2 (06:49→17:44)
[2019-05-19 07:02] LABS: ABS Eosinophils 0.4 10^3/ul (0-0.6); ABS Lymphocytes 0.5 10^3/ul (1.0-4.8); ABS Neutrophils 7.6 10^3/ul (1.5-7.7); Eosinophil % 4.5 %; Hematocrit 48 % (42-52); Hemoglobin 15.6 g/dL (14.0-18.0); Lymphocyte % 5.3 %; Mean Corpuscular HGB Conc 33 g/dL (31-36); Mean Corpuscular Hemoglobin 27 pg (27-31); Mean Corpuscular Volume 82 fL (80-94); Mean Platelet Volume 8.7 fL (7.4-10.4); Platelet Count 149 10^3/uL (150-450); Red Blood Count 5.79 10^6 /uL (4.18-5.48); Red Cell Distribution Width 19 % (10-15); White Blood Count 9.5 10^3/uL (3.5-10.8)
[2019-05-19 07:13] LABS: BUN/Creatinine Ratio 17.2 (8-20); Calcium 8.1 mg/dL (8.6-10.3); EGFR African American 118.2 (>60); EGFR Non-African American 97.7 (>60); Phosphorus 4.5 mg/dL (2.5-5.0); Potassium 3.8 mmol/L (3.5-5.0)
[2019-05-19] MEDS ORDERED: Magnesium Sulfate 2 GM IV* 2 GM/50 ML BAG IVPB ONE (09:05)
[2019-05-19] MEDS: Famotidine IV* 10 MG/ML 2 ML (20 mg) IV SLOW PU SCH (10:08)
[2019-05-19] MEDS: Escitalopram * 10 MG TAB PO SCH (10:08)
[2019-05-19] MEDS: OLANzapine TAB* 10 MG PO SCH (10:08)
--- NOTE | 2019-05-19 10:14 | PN ---
Progress Note - Progress Note Date of Service: 05/19/19 Note: Progress Note -- Critical Care 24 hour events -remains intubated; on propofol and precedex -afebrile, tmax 100 -great urine output on lasix infusion -sats very labile; on peep 22, fio2 100%; desaturates on minimal movement -Limited ROS due to intubated state Tele: NSR Vitals: Vital Signs Temp 99.7 F 05/19/19 08:00 Pulse 62 05/19/19 08:00 Resp 16 05/19/19 08:00 BP 116/65 05/19/19 08:00 Pulse Ox 95 05/19/19 08:00 Intake & Output 05/18/19 05/19/19 05/19/19 18:59 06:59 18:59 Intake Total 1168 2569 Output Total 5935 2785 475 Balance -4767 -216 -475 Weight 263.1 kg 267.5 kg Intake: IV Fluids 484 83 NS wtih meds 484 83 IVPB 332 NS wtih meds 332 Medicated IV 634 2104 CC - Dexmedetomidine/ 809 Precedex GEN - Furosemide/Lasix 84 88 Heparin 277 Propofol 550 930 Tube Feeding Flush Amount 50 50 Output: NG Tube Drainage Amount 800 Urine 275 Roberts 5935 1985 200 O2/Vent: PCV 30/+22, Rate 18, 100% fio2 ; changed to PCV 28/+22, rate 18, fio2 90% Infusions: propofol, precedex , lasix infusion 5mg/hr, IV heparin Current Medications: Acetaminophen (Tylenol Tab*) 975 mg PO Q8H PRN PRN Reason: Pain - Mild to Moderate Al Hydrox/Mg Hydrox/Simethicone (Maalox Plus*) 30 ml PO Q6H PRN PRN Reason: INDIGESTION Albuterol (Ventolin 2.5 Mg/3 Ml Neb.Izabella*) 2.5 mg INH [id number] AWAKE PRN PRN Reason: sob/wheezing Alprazolam (Xanax Tab*) 0.5 mg PO TID PRN PRN Reason: ANXIETY Chlorhexidine Gluconate (Peridex Mouth Wash 0.12%*) 15 ml TOPICAL Q4HR JULIA Last Admin: 05/19/19 05:14 Dose: 15 ml Doxazosin Mesylate (Cardura Tab*) 6 mg PO BEDTIME JULIA Last Admin: 05/18/19 21:14 Dose: 6 mg Escitalopram Oxalate (Lexapro *) 10 mg PO DAILY JULIA Last Admin: 05/18/19 09:28 Dose: 10 mg Famotidine (Pepcid Iv*) 20 mg IV SLOW PU BID JULIA Last Admin: 05/18/19 21:14 Dose: 20 mg Heparin Sodium (Porcine) (Heparin Flush Picc/Ml/Cvc(*)) 1 - 3 ml FLUSH 0600, 1800 JULIA; Protocol Last Admin: 05/19/19 07:24 Dose: Not Given Propofol (Diprivan*) 100 mls @ 0 mls/hr IV .PER PROTOCOL JULIA; Protocol Last Admin: 05/19/19 10:01 Dose: 60 mls/hr Norepinephrine Bitartrate (Levophed 16 Mcg/Ml Premix*) 4,000 mcg in 250 mls @ 18.75 mls/hr IV .INITIAL RATE JULIA; Protocol Last Admin: 05/15/19 12:11 Dose: 18.75 mls/hr Dexmedetomidine HCl 1,000 mcg/ (Sodium Chloride) 250 mls @ 0 mls/hr IV Q6H JULIA ; Protocol Last Admin: 05/19/19 10:02 Dose: 54.8 mls/hr Heparin Sodium/Dextrose (Heparin Drip 25,000 Units(*)) 25,000 units in 500 mls @ 0 mls/hr IV PER RATE JULIA; Protocol Last Admin: 05/19/19 06:49 Dose: 52 mls/hr Furosemide 100 mg/ Sodium (Chloride) 100 mls @ 5 mls/hr IV Q20H JULIA; Protocol Last Admin: 05/18/19 18:53 Dose: 5 mls/hr Potassium Chloride (Potassium Chloride 20 Meq/100 Ml Ivpremix*) 20 meq in 100 mls @ 50 mls/hr IV Q2H JULIA Stop: 05/19/19 13:59 Magnesium Hydroxide (Milk Of Magnesia Liq*) 30 ml PO Q4H PRN PRN Reason: CONSTIPATION Miscellaneous (Ativan Pyxis Black) 1 ea N/A .ATIVAN IV BLACK PRN PRN Reason: PYXIS BLACK Pto: *Loxapine 5mg (Capsule*) 1 dose PO BEDTIME JULIA; Protocol Last Admin: 05/18/19 21:14 Dose: 1 dose Olanzapine (Zyprexa Tab*) 10 mg PO DAILY JULIA Last Admin: 05/18/19 09:28 Dose: 10 mg Physical Exam: Constitutional: intubated, sedated, awakens and follows commands on lower sedation , anxious, no distress, no diaphoresis, obese+ Head: normocephalic, atraumatic Eyes: no pallor, no icterus ENT: moist mucous membranes Neck: soft, supple, no jvd CVS: normal rate, regular, no murmur Chest/Resp: bilateral air entry, no rhales, no wheeze, no rhonchi, no acc muscle use Abdomen/GI: soft, nontender, nondistended, BS+ Ext/Msk: warm, pulses+, + edema Skin: intact, warm Neuro: intubated, sedated, reactive pupils+, moving all ext on lower sedation Psych: anxious on lower sedation, difficult to determine Labs: Laboratory Results - last 24 hr 05/18/19 05/18/19 05/18/19 14:50 14:50 14:50 WBC RBC Hgb Hct MCV MCH MCHC RDW Plt Count MPV Neut % (Auto) Lymph % (Auto) [place] % (Auto) Eos % (Auto) Baso % (Auto) Absolute Neuts (auto) Absolute Lymphs (auto) Absolute Monos (auto) Absolute Eos (auto) Absolute Basos (auto) Absolute Nucleated RBC Nucleated RBC % INR (Anticoag Therapy) 1.23 H APTT 29.8 D-Dimer, Quantitative Patient Temperature ABG pH ABG pH (Temp Correct) ABG pCO2 ABG pCO2 (Temp Corrct ABG pO2 ABG pO2 (Temp Correct ABG HCO3 ABG O2 Saturation ABG Base Excess Respiration Rate Ventilator Type Vent Mode FiO2 Inspiratory Time PEEP Pressure Support Pressure Control EPAP IPAP BiPAP Sodium 136 Potassium 3.8 Chloride 90 L Carbon Dioxide 40 H Anion Gap 6 BUN 14 Creatinine 0.88 Est GFR ( Amer) 116.7 Est GFR (Non-Af Amer) 96.4 BUN/Creatinine Ratio 15.9 Glucose 134 H Calcium 8.3 L Phosphorus Magnesium 2.3 B-Natriuretic Peptide 49 05/18/19 05/19/19 05/19/19 17:30 01:05 01:05 WBC RBC Hgb Hct MCV MCH MCHC RDW Plt Count MPV Neut % (Auto) Lymph % (Auto) [place] % (Auto) Eos % (Auto) Baso % (Auto) Absolute Neuts (auto) Absolute Lymphs (auto) Absolute Monos (auto) Absolute Eos (auto) Absolute Basos (auto) Absolute Nucleated RBC Nucleated RBC % INR (Anticoag Therapy) APTT 42.9 H D-Dimer, Quantitative 429 H Patient Temperature Not Reportable ABG pH 7.48 H ABG pH (Temp Correct) Not Reportable ABG pCO2 53 H ABG pCO2 (Temp Corrct Not Reportable ABG pO2 87 ABG pO2 (Temp Correct Not Reportable ABG HCO3 35.6 H ABG O2 Saturation 99.3 H ABG Base Excess 13.7 H Respiration Rate 20 Ventilator Type Not Reportable Vent Mode pcv FiO2 100 Inspiratory Time .75 PEEP 22 Pressure Support Not Reportable Pressure Control 30 EPAP Not Reportable IPAP Not Reportable BiPAP Not Reportable Sodium 134 L Potassium 3.7 Chloride 91 L Carbon Dioxide 38 H Anion Gap 5 BUN 15 Creatinine 0.84 Est GFR ( Amer) 123.1 Est GFR (Non-Af Amer) 101.7 BUN/Creatinine Ratio 17.9 Glucose 119 H Calcium 8.3 L Phosphorus 4.6 Magnesium 2.2 B-Natriuretic Peptide 05/19/19 05/19/19 05/19/19 01:05 06:35 06:35 WBC RBC Hgb Hct MCV MCH MCHC RDW Plt Count MPV Neut % (Auto) Lymph % (Auto) [place] % (Auto) Eos % (Auto) Baso % (Auto) Absolute Neuts (auto) Absolute Lymphs (auto) Absolute Monos (auto) Absolute Eos (auto) Absolute Basos (auto) Absolute Nucleated RBC Nucleated RBC % INR (Anticoag Therapy) APTT D-Dimer, Quantitative Patient Temperature 100.2 ABG pH 7.47 H 7.46 H ABG pH (Temp Correct) Not Reportable ABG pCO2 56 H 57 H ABG pCO2 (Temp Corrct Not Reportable ABG pO2 94 87 ABG pO2 (Temp Correct Not Reportable ABG HCO3 36.2 H 35.8 H ABG O2 Saturation 98.4 H 98.0 ABG Base Excess 14.5 H 14.0 H Respiration Rate Not Reportable Ventilator Type Not Reportable Vent Mode Not Reportable FiO2 100 Inspiratory Time Not Reportable PEEP 22 Pressure Support Not Reportable Pressure Control Not Reportable EPAP Not Reportable IPAP Not Reportable BiPAP Not Reportable Sodium 134 L Potassium 3.8 Chloride 92 L Carbon Dioxide 36 H Anion Gap 6 BUN 15 Creatinine 0.87 Est GFR ( Amer) 118.2 Est GFR (Non-Af Amer) 97.7 BUN/Creatinine Ratio 17.2 Glucose 133 H Calcium 8.1 L Phosphorus 4.5 Magnesium 2.0 B-Natriuretic Peptide 05/19/19 05/19/19 06:35 08:10 WBC 9.5 RBC 5.79 H Hgb 15.6 Hct 48 MCV 82 MCH 27 MCHC 33 RDW 19 H Plt Count 149 L MPV 8.7 Neut % (Auto) 79.7 Lymph % (Auto) 5.3 [place] % (Auto) 10.1 Eos % (Auto) 4.5 Baso % (Auto) 0.4 Absolute Neuts (auto) 7.6 Absolute Lymphs (auto) 0.5 L Absolute Monos (auto) 1.0 H Absolute Eos (auto) 0.4 Absolute Basos (auto) 0.0 Absolute Nucleated RBC 0.0 Nucleated RBC % 0.0 INR (Anticoag Therapy) APTT 65.2 H D-Dimer, Quantitative Patient Temperature ABG pH ABG pH (Temp Correct) ABG pCO2 ABG pCO2 (Temp Corrct ABG pO2 ABG pO2 (Temp Correct ABG HCO3 ABG O2 Saturation ABG Base Excess Respiration Rate Ventilator Type Vent Mode FiO2 Inspiratory Time PEEP Pressure Support Pressure Control EPAP IPAP BiPAP Sodium Potassium Chloride Carbon Dioxide Anion Gap BUN Creatinine Est GFR ( Amer) Est GFR (Non-Af Amer) BUN/Creatinine Ratio Glucose Calcium Phosphorus Magnesium B-Natriuretic Peptide Imaging: CXR 05/14 - cardiomegaly, pulm congestion+ cxr 05/15 - ett above julia, cardiomegaly+, pulm congestion+ cxr 05/16 - obese, congestion++, cardiomegaly DUplex 05/15 - no DVT cxr 05/17 - pulm edema++ still, unchanged cxr 05/18 - ett above julia; bilateral mild congestion, cardiomegaly+, prominent pulm arteries cxr 05/19 - persistent mild congestion+ Assessment: 39y M w/pmhx of HTN, obesity, Sleep Apnea, asthma in childhood, Anxiety disorder, depression, Peripheral venous insuff, lymphedema; comes to ER 05/14 for complaints of SOB for a few days to weeks. Mother also came with him and states that he has been increasingly been gaining weight, more so past month. no fever/chills. no diarrhea. has been on water pill for fluid buildup also. He stated he could not tolerate home CPAP machine and has been having lower oxygen levels at home for weeks also. In ER he was hypoxic to 70s, started on NC. CXR 05/14 demonstrated pulm congestion. He was admitted for volume overload, respiratory failure, with ABG demonstrating hypercapnea and A- a gradient. Patient overnight became more lethargic, increasing O2 requirements , eventually requiring intubation. -Acute hypoxic and hypercapneic respiratory failure, intubated 05/15 -Acute Pulmonary Congestion -r/o DVT -Hyperkalemia -Hyponatremia -Shock, 2/2 to sedation/vasodilatation -acute decompensated Diastolic heart failure -Pulm HTN -Morbid Obesity -Anxiety disorder Sleep Apnea Lymphedema Plan: Neuro- -on propofol and precedex for sedation; minimize propofol -Ativan PRN -cont lexapro, olanzapine , cont xanax prn -Delirium prec; avoid BDZ CVS- -shock improved; off pressors after 1st day -making large amounts of urine and remains stable with good CO/CI ; CVP 15-20, PCW 19, CI 3 -on lasix 5mg/hr, making 200-300cc/hr; will hold lasix infusion for transport -repleting K/Mg as needed with diuresis ongoing -hold antihypertensives -TTE to eval for effusion/LV function - no gross LV dysfunction or RV dysfunction -Bedside bubble study without any Right to left shunting noted -will consider CARLOS at some point -Maintain MAP>65 Resp- -Intubated; on PCV mode now; on 100%, 28/+22, rate 18 -CXR 05/19 with mild congestion -APRV would be considered also -given his respiratory status and slow improvement, discussed with [facility] this mornign and they have a bed in ICU available; i disucssed for potential ECMO backup if needed -very labile sats; minimize movement -cont IV diuresis -IV heparin empiric ; though my suspicion is low for acute PE -DVT negative on study -not able to get CTA or v/q; empiric IV heparin till able to be ruled out -component of FRANCK uncontrolled, obesity hypoventilation; now with severe Pulm HTN, Cor Pulmonale and LV diastolic heart failure -Wean Fio2 to keep sat>92% -Bronchodilators PRN, Aspiration prec, Pulmonary Toilet -VAP bundle ID- afebrile, tmax 100. wbc 11-8-7-8-9. nontoxic. no clear focal infiltrate, congestion+. low suspicion for infection. monitor off abx for now GI- -NGT+; high residuals++; has been off feeds now -bowel movements+, no diarrhea -start reglan for motility -GI prophylaxis - h2b Renal- -Cr okay; good uop with lasix infusion -KCL IV today -check BMP later today -diamox prn for alkalosis -metabolic alkalosis from ongoing diuresis as well as underling chronic hypercapnea? -strict I/O, replete to keep K>4, Mg>2 -roberts as indicated Heme- hg stable, plt stable -DVT porph with chemical and SCDs -LE duplex neg for DVTs -IV heparin empiric for now Endo- Maintain BG<200, insulin protocol as needed; noted hba1c 6.2, likely pre- diabetic range now. Musculsk- pressure ulcer prophylaxis. Bedrest. Wounds- none Nutrition- TF if tolerated; high residuals DVT prophylaxis: SCD, enoxaparin sq GI prophylaxis: h2b Central Line: PICC Right arm 05/15; RIJ Intro/[place] 05/16 Arterial Line: no Roberts Cathetor: yes Disposition: Patient requires Critical Care/ICU for acute respiratory failure req intubation, pulm htn, CHF exaccerbation, volume overload given his resp status, slow improvement, high vent requirements, i disucssed with and [facility], for transfer to higher level of care. There is a change of ECMO if not improving, and that is what was discussed. for Transfer today. Patient Clinical Status: guarded, critical Code Status: full code Total Critical Care time is 45 minutes, excluding procedures/teaching Sameer Moscoso MD Acid Filler (Electronically Signed)
[2019-05-19] MEDS ORDERED: Furosemide IV* 10 MG/ML VIAL (40 MG) IV ONE (14:31)
[2019-05-19] MEDS ORDERED: HYDROmorphone INJ1* 1 MG/ML SYRINGE ONE ×2 (15:19→18:51)
[2019-05-19] MEDS ORDERED: Midazolam* 1 MG/ML 2 ML VIAL (2 MG) ONE (19:27)
[2019-05-19] MEDS ORDERED: Midazolam* 1 MG/ML 2 ML VIAL (2 MG) IV SLOW PU ONE (20:00)
[2019-05-19] MEDS ORDERED: VECURONIUM BROMIDE 10 MG INJ IV ONE (20:00)
[2019-05-19 20:21] VITALS: BP 125/82
--- NOTE | 2019-05-21 19:27 | DS ---
Discharge Summary Patient Name: Shailesh Ramires Date of Admission: 05/14/2019 Date of Discharge: 05/19/2019 Attending: Dr Sameer Moscoso Consultants: - Admitting Diagnoses: 1- Acute Hypoxic and Hypercapnic respiratory failure 2- Acute Pulmonary Congestion 3- Hyponatremia Discharge Diagnoses: 1- Acute Hypoxic and Hypercapnic respiratory failure 2- Acute Pulmonary Congestion 3- Acute decompensated Left Ventricular Diastolic heart failure 4- Pulmonary Hypertension 5- Morbid obesity HPI/Hospital Course: 39y M w/pmhx of HTN, obesity, Sleep Apnea, asthma in childhood, Anxiety disorder , depression, Peripheral venous insuffiency, lymphedema; comes to ER 05/14 for complaints of SOB for a few days to weeks. Mother also came with him and states that he has been increasingly been gaining weight, more so past month. Has been on outpatient diuretics for fluid buildup. He stated he could not tolerate home CPAP machine and has been having lower oxygen levels at home for weeks also. In ER he was hypoxic to 70s, started on NC. CXR 05/14 demonstrated pulm congestion. He was admitted for volume overload, respiratory failure, with ABG demonstrating hypercapnea and A-a gradient. Patient overnight became more lethargic, increasing O2 requirements, eventually requiring intubation 05/15. He was started on IV diuretics and responding well with good outputs. The patient required transient use of vasopressors the 1st 24-48 hours. A TTE was performed with limited views demonstrating grossly normal LV function, RV size and function, no pericardial effusion. Given obesity, pulmonary congestion and symptoms of heart failure, a Pulmonary artery catheter was placed for hemodynamic assessment which demonstrated elevated PCW to 22, Elevated Pulmonary artery pressures to 70s, preserved Cardiac outputs to ~15L/min. Over the next 3 days he was maintained on diuresis with a negative balance of almost 4-5L/day, while maintaining good renal function and hemodynamics. Despite ongoing diuresis he still required 100% fio2, with escalating PEEPS to 22 with oxygen sats in low 90s while being highly labile. He was on a pressure control ventilation with peep 22, tolerating well. ABGs had showed improved ventilation but minimal change in PO2s. He was able to tolerated a more inverse ratio ventilation mode but only upto a certain degree. Chest xrays did not ever show any focal infiltrative process indicative of pneumonia/ARDS. Lower Extremity duplex studies revealed no dvt. A CTA of chest was not able to be done due to patient size and likelihood of very poor images. Overall my suspicion for a Pulmonary embolus was low given normal RV function, hemodynamic stability given high fio2 requirements, but there was no definitive way to rule it out otherwise. I started him on empiric IV heparin given his acute and unstable state. Given his high fio2 requirements, obesity, great diuresis but slow/ standstill respiratory status I advised and decided that transfer to a higher level of care with advanced therapies for pulmonary hypertension as well as option for ECMO support would be in the patients best interest. I discussed this with the and she agreed. Options for transfer to [facility] and [facility] obtained, with eventual acceptance to [facility], and I discussed the case with their pulm/CC service, they were in agreement. He was transferred via ground Critical care transport on 05/19/2019 around 7pm. He did have desaturation with slow but eventual improvement on transitioning from bed to stretcher and with ventilator switches. He eventually recovered oxygenation, remained stable on propofol infusion, precedex infusion, given additional versed pushes and dilaudid for sedation and comfort during transport as well as Vecuronium 10mg IV push as to better optimize oxygenation and allow for recruitment during transport. Patient was seen by me and evaluated during the day, see progress not for Physical Exam and detailed evaluation. Procedures/Imaging: see chart Laboratory/Data: see chart Discharge Medications: see chart; Heparin Infusion, Propofol infusion, Dexmetomadine Infusion; Furosemide infusion was held for transfer; see other medications. Diet: Promote TF; held for residuals and for transport. Activity: bedrest on discharge Condition upon discharge: guarded, but critical Disposition: transfer to higher-level of care at [facility] on 05/19/2019; possible ECMO evaluation Code Status: full code Recommendations: - Follow-up: - Total Discharge time 40 minutes Sameer Moscoso MD Sap Abap Programmer (Electronically Signed)
--- NOTE | 2019-06-20 21:31 | HP ---
ADDENDUM: This is an addendum to the H and P written on 05/14/19. REVIEW OF SYSTEMS: A complete 10-point review of systems was performed and pertinent positives and negatives are listed in the HPI. [id number]/CPS #: [id number] MTDD
== END 2019-05-19 20:00 | disposition short-term general hospital (02) | DRG 130 ==
LOC: ED 16:42 → ICU 19:57 → UNDOADMIN 20:40 → ICU 20:40
PROVIDERS: ADMIT Internal Medicine; ATTEND Internal Medicine Critical Care Medicine
PROC: 5A09357 Assistance with Respiratory Ventilation, Less than 24 Consecutive Hours, Continuous Positive Airway Pressure (ICD-10-PCS; 2019-05-14)
PROC: 0BH17EZ Insertion of Endotracheal Airway into Trachea, Via Natural or Artificial Opening (ICD-10-PCS; principal; 2019-05-15)
PROC: 5A1955Z Respiratory Ventilation, Greater than 96 Consecutive Hours (ICD-10-PCS; 2019-05-15)
PROC: 02HV33Z Insertion of Infusion Device into Superior Vena Cava, Percutaneous Approach (ICD-10-PCS; 2019-05-15)
PROC: 4A133B3 Monitoring of Arterial Pressure, Pulmonary, Percutaneous Approach (ICD-10-PCS; 2019-05-16)
PROC: 02HQ32Z Insertion of Monitoring Device into Right Pulmonary Artery, Percutaneous Approach (ICD-10-PCS; 2019-05-16)
DX: J96.01 Acute respiratory failure with hypoxia (principal); I50.33 Acute on chronic diastolic (congestive) heart failure; E87.1 Hypo-osmolality and hyponatremia; R57.9 Shock, unspecified; E66.2 Morbid (severe) obesity with alveolar hypoventilation; Z68.45 Body mass index [BMI] 70 or greater, adult; I11.0 Hypertensive heart disease with heart failure; J96.02 Acute respiratory failure with hypercapnia; F41.9 Anxiety disorder, unspecified; F32.9 Major depressive disorder, single episode, unspecified; I89.0 Lymphedema, not elsewhere classified; E87.5 Hyperkalemia; J45.909 Unspecified asthma, uncomplicated; I73.9 Peripheral vascular disease, unspecified; I27.20 Pulmonary hypertension, unspecified; R79.89 Other specified abnormal findings of blood chemistry; Z82.49 Family history of ischemic heart disease and other diseases of the circulatory system; Z81.8 Family history of other mental and behavioral disorders; Z83.3 Family history of diabetes mellitus; Z82.3 Family history of stroke; Z86.718 Personal history of other venous thrombosis and embolism; Z91.14 Patient's other noncompliance with medication regimen
CPT/HCPCS: 36415; 36600; 71045; 80048; 80053; 80061; 81003; 81015; 82803; 83036; 83735; 83880; 84100; 84439; 84443; 84481; 84484; 85025; 85027; 85379; 85610; 85730; 87641; 93005; 93306; 93970; 94002; 94003; 94660; 99285; A9270-GY; C1751; C8929; J0330; J1120; J1170; J1650; J1940; J2060; J2250; J2704; J3475; J3480